=== PATIENT | female | born 1995 | race Caucasian/White ===

== ENCOUNTER 2017-10-22 14:32 | Inpatient (IN) | payer OTHER ==
--- NOTE | 2017-10-22 14:57 | PDOC ---
Rapid Medical Evaluation Time Seen by Provider: 10/22/17 14:46 Medical Evaluation: Allergies Allergy/AdvReac Type Severity Reaction Status Date / Time No Known Allergies Allergy Verified 10/22/17 14:46 10/22/17 14:46 I have performed a brief in-person evaluation of this patient. The patient presents with a chief complaint of: right mandibular swelling s/p tooth extraction Pertinent physical exam findings: HEENT: fluctuant area to buc[place] side of tooth #32 I have ordered the following: upt, ct maxilofacial The patient will proceed to the ED for further evaluation. Discharge Disposition - Diagnosis Right facial swelling - Referrals Referrals: Norberto Nicholson MD [Primary Care Provider] - - Patient Instructions - Post Discharge Activity
[2017-10-22 17:00] LABS: BASO % 0.4 % (0-2.0); EOS % 0.3 % (0-4.5); LYMPH # 1.9 (8-40); MCH 28.5 pg (25.7-33.7); MCHC 32.9 g/dl (32.0-36.0); MEAN CELL VOLUME 86.7 fl (80-96); MEAN PLT VOLUME 8.7 fl (7.5-11.1); MONO # 0.6 # (3.8-10.2); NEUT # 6.9 # (42.8-82.8); NEUT % 72.6 % (42.8-82.8); PLATELET COUNT 330 K/MM3 (134-434); RDW 14.1 % (11.6-15.6); WHITE BLOOD COUNT 9.6 K/mm3 (4.0-10.0)
[2017-10-22 17:32] LABS: ALBUMIN 4.2 g/dl (3.4-5.0); ANION GAP 6 (8-16); BILIRUBIN,TOTAL 0.7 mg/dL (0.2-1.0); CALCIUM 9.1 mg/dL (8.5-10.1); CO2 28 mmol/L (21-32); CREATININE 0.5 mg/dL (0.55-1.02); GLUCOSE,RANDOM 77 mg/dL (74-106); SGOT/AST 10 U/L (15-37); SGPT/ALT 16 U/L (12-78)
[2017-10-22 17:34] LABS: ALK PHOS 80 U/L (45-117); TOT PROT 8.5 g/dl (6.4-8.2)
[2017-10-22] MEDS ORDERED: AMPICILLIN NA/SULBACTAM NA 3 GM in SODIUM CHLORIDE 100 ML IVPB ONE (18:55)
[2017-10-22] MEDS ORDERED: KETOROLAC TROMETHAMINE 30 MG/1 ML VIAL IVPUSH ONE (19:10)
--- NOTE | 2017-10-22 19:20 | PDOC ---
History of Present Illness - General Chief Complaint: Pain, Acute Stated Complaint: ORAL SWELLING Time Seen by Provider: 10/22/17 14:46 - History of Present Illness Initial Comments: 10/22/17 19:19 22 F with no PMH presents to ER with R face swelling and pain. Pt had tooth extraction on Wednesday. SHe was DC'ed home with penicillin, which she has been taking. However, pt reports gradual progression of swelling and pain in her R cheek despite compliance with antibiotics. Endorses subjective fevers. Denies any drainage from her extraction site. Pt was seen by dentist today, who referred her to ER for further management. Past History - Past Medical History Allergies/Adverse Reactions: Allergies Allergy/AdvReac Type Severity Reaction Status Date / Time No Known Allergies Allergy Verified 10/22/17 14:46 Home Medications: Ambulatory Orders NK [No Known Home Medication] 10/24/15 COPD: No - Suicide/Smoking/Psychosocial Hx Smoking History: Never smoked Have you smoked in the past 12 months: No Information on smoking cessation initiated: No Hx Alcohol Use: No Drug/Substance Use Hx: No Substance Use Type: None Review of Systems - Review of Systems Comments:: 10/22/17 19:21 "GENERAL/CONSTITUTIONAL: No fever or chills. No weakness. HEAD, EYES, EARS, NOSE AND THROAT: R cheek swelling and pain CARDIOVASCULAR: No chest pain or shortness of breath. RESPIRATORY: No cough, wheezing, or hemoptysis. GASTROINTESTINAL: No nausea, vomiting, diarrhea or constipation. GENITOURINARY: No dysuria, frequency, or change in urination. MUSCULOSKELETAL: No joint or muscle swelling or pain. No neck or back pain. SKIN: No rash NEUROLOGIC: No headache, vertigo, loss of consciousness, or change in strength/ sensation. ENDOCRINE: No increased thirst. No abnormal weight change. HEMATOLOGIC/LYMPHATIC: No anemia, easy bleeding, or history of blood clots. ALLERGIC/IMMUNOLOGIC: No hives or skin allergy. " *Physical Exam - Vital Signs Last Vital Signs Temp Pulse Resp BP Pulse Ox 98.4 F 83 20 125/65 100 10/22/17 14:53 10/22/17 14:53 10/22/17 14:53 10/22/17 14:53 10/22/17 14:53 - Physical Exam Comments: 10/22/17 19:21 "GENERAL: Awake, alert, and fully oriented, in no acute distress HEAD: No signs of trauma EYES: PERRLA, EOMI, sclera anicteric, conjunctiva clear ENT: Auricles normal inspection, hearing grossly normal, nares patent, oropharynx clear without exudates. Moist mucosa + swelling and tenderness to R cheek without significant erythema, #32 tooth socket with dry blood, no purulent drainage NECK: Nontender, no stepoffs, Normal ROM, supple, no lymphadenopathy, JVD, or masses LUNGS: Breath sounds equal, clear to auscultation bilaterally. No wheezes, and no crackles HEART: Regular rate and rhythm, normal S1 and S2, no murmurs, rubs or gallops ABDOMEN: Soft, nontender, normoactive bowel sounds. No guarding, no rebound. No masses EXTREMITIES: Normal range of motion, no edema. No clubbing or cyanosis. No cords, erythema, or tenderness NEUROLOGICAL: Cranial nerves II through XII intact. 5/5 strength and sensation in all extremities, Normal speech, normal gait SKIN: Warm, Dry, normal turgor, no rashes or lesions noted. " ED Treatment Course - LABORATORY CBC & Chemistry Diagram: 10/23/17 07:05 10/23/17 07:05 - ADDITIONAL ORDERS Additional order review: Laboratory Results 10/22/17 10/22/17 16:03 15:40 Sodium 136 Potassium 4.9 Chloride 102 Carbon Dioxide 28 Anion Gap 6 L BUN 8 Creatinine 0.5 L Creat Clearance w eGFR > 60 Random Glucose 77 Calcium 9.1 Total Bilirubin 0.7 AST 10 L ALT 16 Alkaline Phosphatase 80 Total Protein 8.5 H Albumin 4.2 Urine HCG, Qual Negative 10/22/17 16:03 RBC 4.29 MCV 86.7 MCHC 32.9 RDW 14.1 MPV 8.7 Neutrophils % 72.6 Lymphocytes % 20.3 Monocytes % 6.4 Eosinophils % 0.3 Basophils % 0.4 - RADIOLOGY Radiology Studies Ordered: Category Date Time Status FACIAL BONES CT WITH CONTRAST [CT] Stat CT Scan 10/22/17 17:45 Completed Medical Decision Making - Medical Decision Making 10/22/17 19:22 22 F with R facial swelling s/p tooth extraction on Wednesday. Concerning for abscess formation. - Labs - CT facial bones w/ IV contrast - IV unasyn 10/22/17 19:36 CT consistent with abscess formation. Pt given IV unasyn Will admit for IV abx and possible OMFS consultation Case discussed in detail with admitting physician including history, physical exam and ancillary studies. Admitting physician has assumed care for the patient and will follow all pending diagnostics and complete the evaluation and treatment. *DC/Admit/Observation/Transfer Diagnosis at time of Disposition: Right facial swelling, Dental abscess - Discharge Dispostion Admit: Yes - Referrals - Patient Instructions - Post Discharge Activity - Attestations Physician Attestion: 10/22/17 19:47 I, Dr. Basil Platt MD, attest that this document has been prepared under my direction and personally reviewed by me in its entirety. I further attest, that it accurately reflects all work, treatment, procedures and medical decision -making performed by me.
[2017-10-22] MEDS ORDERED: KETOROLAC TROMETHAMINE 15 MG/ML VIAL ONE (19:33)
--- NOTE | 2017-10-22 20:42 | PN ---
Teaching Attending Note Name of Resident: Lm Nunez ATTENDING PHYSICIAN STATEMENT I saw and evaluated the patient. I reviewed the resident's note and discussed the case with the resident. I agree with the resident's findings and plan as documented. SUBJECTIVE: 22 y/o female presented to the hospital for right facial swelling, patient was seen at the dentist who recommended to come to the ER. patient was complaining of subjective fever and pain. OBJECTIVE: swelling with tenderness of the right face s1 and s2 RRR abdomen soft non-tender goiter noted on the neck ASSESSMENT AND PLAN: IV sulbacatam/ampicillin obtain thyroid function [id number] evaluation for the abscess drainage
[2017-10-22] MEDS ORDERED: ACETAMINOPHEN 325 MG TABLET (FP) PO PRN (21:25)
[2017-10-22] MEDS ORDERED: ACETAMINOPHEN 1000 MG/100 ML VIAL (NON FORMULARY) IVPB PRN (21:26)
--- NOTE | 2017-10-22 23:58 | HP ---
CHIEF COMPLAINT: facial pain and mass PCP: HISTORY OF PRESENT ILLNESS: 22F w/ no significant PMH who presents with facial pain and mass. She states that she first noticed the facial pain and mass 5 days ago. She denies any preceding trauma or injury to her face, recent cavities, or dental infections. Over the past 5 days, the mass has grown in size, and the pain has increased. This has caused her to be unable to fully open her mouth. She denies any fevers , chills, rhinorrhea, nasal congestion, sore throat, dysphagia, SOB, cough, chest pain, abdominal pain, n/v/d/c, and dysuria. She denies any previous abscesses or any family history of abscesses. ER course was notable for: (1) physical exam (2) (3) Recent Travel: PAST MEDICAL HISTORY: None PAST SURGICAL HISTORY: None Social History: Smoking: denies Alcohol: denies Drugs: denies Family History: denies Allergies No Known Allergies Allergy (Verified 10/22/17 14:46) HOME MEDICATIONS: Home Medications Medication Instructions Recorded NK [No Known Home Medication] 10/24/15 REVIEW OF SYSTEMS CONSTITUTIONAL: Absent: fever, chills, diaphoresis, generalized weakness, malaise, loss of appetite, weight change HEENT: Absent: rhinorrhea, nasal congestion, throat pain, throat swelling, difficulty swallowing, ear pain, eye pain, visual changes present: facial pain and mass CARDIOVASCULAR: Absent: chest pain, syncope, palpitations, irregular heart rate, lightheadedness , peripheral edema RESPIRATORY: Absent: cough, shortness of breath, dyspnea with exertion, orthopnea, wheezing, stridor, hemoptysis GASTROINTESTINAL: Absent: abdominal pain, abdominal distension, nausea, vomiting, diarrhea, constipation, melena, hematochezia GENITOURINARY: Absent: dysuria, frequency, urgency, hesitancy, hematuria, flank pain, genital pain MUSCULOSKELETAL: Absent: myalgia, arthralgia, joint swelling, back pain, neck pain SKIN: Absent: rash, itching, pallor HEMATOLOGIC/IMMUNOLOGIC: Absent: easy bleeding, easy bruising, lymphadenopathy, frequent infections ENDOCRINE: Absent: unexplained weight gain, unexplained weight loss, heat intolerance, cold intolerance NEUROLOGIC: Absent: headache, focal weakness or paresthesias, dizziness, unsteady gait, seizure, mental status changes, bladder or bowel incontinence PSYCHIATRIC: Absent: anxiety, depression, suicidal or homicidal ideation, hallucinations. PHYSICAL EXAMINATION Vital Signs - 24 hr 10/22/17 10/22/17 14:53 21:07 Temperature 98.4 F 99.2 F Pulse Rate 83 Pulse Rate [ 86 Right Radial] Respiratory 20 18 Rate Blood Pressure 125/65 Blood Pressure 113/75 [Left Arm] O2 Sat by Pulse 100 100 Oximetry (%) GENERAL: Awake, alert, and fully oriented, in no acute distress. HEENT: 5cm x 3.5cm erythematous firm mass on right cheek, very tender to palpation, non-fluctuant. limited ROM in opening mouth. no obvious dental cavities or infections NECK: Normal range of motion, supple without lymphadenopathy, JVD, or masses. LUNGS: Breath sounds equal, clear to auscultation bilaterally. No wheezes, and no crackles. No accessory muscle use. HEART: Regular rate and rhythm, normal S1 and S2 without murmur, rub or gallop. ABDOMEN: Soft, nontender, not distended, normoactive bowel sounds, no guarding, no rebound, no masses. No hepatomegaly or splenomegaly. MUSCULOSKELETAL: Normal range of motion at all joints. No bony deformities or tenderness. No CVA tenderness. UPPER EXTREMITIES: 2+ pulses, warm, well-perfused. No cyanosis. No clubbing. No peripheral edema. LOWER EXTREMITIES: 2+ pulses, warm, well-perfused. No calf tenderness. No peripheral edema. NEUROLOGICAL: Cranial nerves II-XII intact. Normal speech. Normal gait. PSYCHIATRIC: Cooperative. Good eye contact. Appropriate mood and affect. SKIN: Warm, dry, normal turgor, no rashes or lesions noted, normal capillary refill. Laboratory Results - last 24 hr 10/22/17 10/22/17 10/22/17 15:40 16:03 16:03 WBC 9.6 RBC 4.29 Hgb 12.2 Hct 37.2 MCV 86.7 MCH 28.5 MCHC 32.9 RDW 14.1 Plt Count 330 MPV 8.7 Neutrophils % 72.6 Lymphocytes % 20.3 Monocytes % 6.4 Eosinophils % 0.3 Basophils % 0.4 Sodium 136 Potassium 4.9 Chloride 102 Carbon Dioxide 28 Anion Gap 6 L BUN 8 Creatinine 0.5 L Creat Clearance w eGFR > 60 Random Glucose 77 Calcium 9.1 Total Bilirubin 0.7 AST 10 L ALT 16 Alkaline Phosphatase 80 Total Protein 8.5 H Albumin 4.2 Urine HCG, Qual Negative CT facial bones: A 1.3 x 1.1 x 0.7 cm hypodense focus is seen along the lateral aspect of the right mandibular body adjacent to the third molar socket suggestive of abscess formation. This fluid collection appears to communicate with a smaller area of fluid accumulation overlying the third molar tooth socket. Soft tissue inflammatory changes are noted along the right face. There is a probable nonspecific 1.2 cm right thyroid lobe nodule. Correlate with nonemergent sonography. ASSESSMENT/PLAN: 22F w/ no significant PMH who presents with facial pain and mass for past 5 days. #facial mass -likely abscess -unasyn -motrin and APAP for pain or fever -OMFS consulted, Dr. Romero,f/u recs regarding I&D #FEN/ppx -no fluids -electrolytes wnl -NPO for now -no GI ppx -no DVT ppx, pt ambulatory and low risk #Dispo -admit to observation -Lm Nunez Visit type - Emergency Visit Emergency Visit: Yes ED Registration Date: 10/22/17 Care time: The patient presented to the Emergency Department on the above date and was hospitalized for further evaluation of their emergent condition. - New Patient This patient is new to me today: Yes Date on this admission: 10/23/17 - Critical Care Critical Care patient: No
[2017-10-23] MEDS: IBUPROFEN 800 MG/8 ML IJ IVPB PRN ×2 (01:02→10:52)
[2017-10-23 02:04] VITALS: BMI 26.8
[2017-10-23 07:38] LABS: BASO # 0.1 # (0.1-1); BASO % 0.5 % (0-2.0); EOS # 0.1 # (0-4.5); EOS % 0.9 % (0-4.5); LYMPH # 2.3 (8-40); MCH 28.1 pg (25.7-33.7); MCHC 32.8 g/dl (32.0-36.0); MEAN CELL VOLUME 85.5 fl (80-96); MEAN PLT VOLUME 7.8 fl (7.5-11.1); MONO # 0.8 # (3.8-10.2); NEUT # 6.4 # (42.8-82.8); NEUT % 66.2 % (42.8-82.8); PLATELET COUNT 316 K/MM3 (134-434); RDW 13.6 % (11.6-15.6); WHITE BLOOD COUNT 9.6 K/mm3 (4.0-10.0)
[2017-10-23 08:12] LABS: ALBUMIN 3.6 g/dl (3.4-5.0); ANION GAP 8 (8-16); BILIRUBIN,TOTAL 0.7 mg/dL (0.2-1.0); CALCIUM 9.3 mg/dL (8.5-10.1); CO2 29 mmol/L (21-32); CREATININE 0.5 mg/dL (0.55-1.02); GLUCOSE,RANDOM 79 mg/dL (74-106); SGOT/AST 11 U/L (15-37); SGPT/ALT 13 U/L (12-78); TOT PROT 7.5 g/dl (6.4-8.2)
[2017-10-23 08:13] LABS: ALK PHOS 71 U/L (45-117)
[2017-10-23 08:46] LABS: INR 1.27 (0.82-1.09); PROTHROMBIN TIME (PATIENT) 14.4 SEC (9.98-11.88)
[2017-10-23 08:49] LABS: ACTIVATED PTT 28.8 SECONDS (26.9-34.4)
--- NOTE | 2017-10-23 10:18 | PN ---
Progress Note (short form) - Note Progress Note: ID Consult dictated Dental abscess Obtain blood c/s Continue empiric Unasyn Dental evaluation
[2017-10-23] MEDS: AMPICILLIN NA/SULBACTAM NA 3 GM in SODIUM CHLORIDE 100 ML IVPB SCH ×3 (12:11→20:39)
[2017-10-23] MEDS ORDERED: PT OWN MED DRAWER 7, Y5N ONE ×2 (16:05→20:32)
--- NOTE | 2017-10-23 16:27 | PN ---
Physical Exam: SUBJECTIVE: Patient seen and examined Patient stated that on Wednesday ,she had her wisdom tooth pulled. Afterward patient developed an infection where the dentist asked her to the hospital for IV antibiotic. OBJECTIVE: Vital Signs Temperature 98 F 10/23/17 14:23 Pulse Rate 69 10/23/17 14:23 Respiratory Rate 18 10/23/17 14:23 Blood Pressure 105/41 10/23/17 14:23 O2 Sat by Pulse Oximetry (%) 98 10/23/17 09:00 GENERAL: The patient is awake, alert, and fully oriented, in no acute distress. HEAD: Normal with no signs of trauma. EYES: PERRL, extraocular movements intact, sclera anicteric, conjunctiva clear. ENT: Ears normal, patient is unable to open her mouth , swollen the right side of her mouth. NECK: Trachea midline, full range of motion, supple. LUNGS: Breath sounds equal, clear to auscultation bilaterally, no wheezes, no crackles, no accessory muscle use. HEART: Regular rate and rhythm, S1, S2 without murmur, rub or gallop. ABDOMEN: Soft, nontender, nondistended, normoactive bowel sounds, no guarding, no rebound, no hepatosplenomegaly, no masses appreciated. EXTREMITIES: 2+ pulses, warm, well-perfused, no edema. NEUROLOGICAL: Cranial nerves II through XII grossly intact. Normal speech. PSYCH: Normal mood, normal affect. SKIN: Warm, dry, normal turgor, no rashes or lesions noted CBCD WBC 9.6 K/mm3 (4.0-10.0) 10/23/17 07:05 RBC 4.04 M/mm3 (3.60-5.2) 10/23/17 07:05 Hgb 11.3 GM/dL (10.7-15.3) 10/23/17 07:05 Hct 34.5 % (32.4-45.2) 10/23/17 07:05 MCV 85.5 fl (80-96) 10/23/17 07:05 MCHC 32.8 g/dl (32.0-36.0) 10/23/17 07:05 RDW 13.6 % (11.6-15.6) 10/23/17 07:05 Plt Count 316 K/MM3 (134-434) 10/23/17 07:05 MPV 7.8 fl (7.5-11.1) D 10/23/17 07:05 CMP Sodium 138 mmol/L (136-145) 10/23/17 07:05 Potassium 4.5 mmol/L (3.5-5.1) 10/23/17 07:05 Chloride 101 mmol/L (98-107) 10/23/17 07:05 Carbon Dioxide 29 mmol/L (21-32) 10/23/17 07:05 Anion Gap 8 (8-16) 10/23/17 07:05 BUN 8 mg/dL (7-18) 10/23/17 07:05 Creatinine 0.5 mg/dL (0.55-1.02) L 10/23/17 07:05 Creat Clearance w eGFR > 60 (>60) 10/23/17 07:05 Calcium 9.3 mg/dL (8.5-10.1) 10/23/17 07:05 Total Bilirubin 0.7 mg/dL (0.2-1.0) 10/23/17 07:05 AST 11 U/L (15-37) L 10/23/17 07:05 ALT 13 U/L (12-78) 10/23/17 07:05 Alkaline Phosphatase 71 U/L (45-117) 10/23/17 07:05 Total Protein 7.5 g/dl (6.4-8.2) 10/23/17 07:05 Albumin 3.6 g/dl (3.4-5.0) 10/23/17 07:05 Active Medications Generic Name Dose Route Start Last Admin Trade Name Nancy PRN Reason Stop Dose Admin Acetaminophen 1,000 mg 10/22/17 21:26 10/23/17 16:21 Ofirmev Injection - IVPB 1,000 mg Q6H PRN Administration FEVER OR PAIN Ampicillin Sodium/Sulbactam 100 mls @ 200 mls/hr 10/23/17 10:30 10/23/17 16: 21 Sodium 3 gm/ Sodium Chloride IVPB 200 mls/hr Q6H-IV YANNA Administration Ibuprofen 600 mg 10/22/17 21:25 10/23/17 10:52 Caldolor Injection - IVPB 600 mg Q6H PRN Administration FEVER OR PAIN Home Medications Medication Instructions Recorded NK [No Known Home Medication] 10/24/15 CT facial bones: A 1.3 x 1.1 x 0.7 cm hypodense focus is seen along the lateral aspect of the right mandibular body adjacent to the third molar socket suggestive of abscess formation. This fluid collection appears to communicate with a smaller area of fluid accumulation overlying the third molar tooth socket. Soft tissue inflammatory changes are noted along the right face. There is a probable nonspecific 1.2 cm right thyroid lobe nodule. Correlate with nonemergent sonography. ASSESSMENT/PLAN: Patient is a 22F w/ no significant PMH who presents with facial pain and mass for past 5 days. #Acute dental abcess on IV Unasyn , ID consult appreciated , ON motrin IV and tylenol prn Patient is Inpatient now Visit type - Emergency Visit Emergency Visit: Yes ED Registration Date: 10/22/17 Care time: The patient presented to the Emergency Department on the above date and was hospitalized for further evaluation of their emergent condition. - New Patient This patient is new to me today: Yes Date on this admission: 10/23/17 - Critical Care Critical Care patient: No - Discharge Referral Referred to [facility] Med P.C.: No
[2017-10-23] MEDS ORDERED: IBUPROFEN 800 MG/8 ML IJ IVPB PRN (16:37)
[2017-10-23] MEDS: IBUPROFEN 800 MG/8 ML IJ IVPB SCH ×2 (18:00→22:21)
--- NOTE | 2017-10-23 19:34 | CONS ---
DATE OF CONSULTATION: 10/23/2017 INFECTIOUS DISEASE CONSULTATION HISTORY OF PRESENT ILLNESS: The patient is a 22-year-old previously healthy female who was evaluated for dental abscess. The patient had 2 molar teeth extracted on Friday October 20, 2017. According to the note she had the 3rd mandibular molar on each side extracted. She was given a course of oral penicillin which she reports taking. She developed worsening pain and swelling of the right mandibular area. She reports being seen by the dentist and referred by the hospital for admission. On admission her CAT scan shows extraction of mandibular 3rd molar teeth bilaterally, soft tissue edema along the lateral border of the right mandibular body. There is an area of low attenuation focus abutting the lateral border of the right mandibular body at the level of the 3rd molar socket. Fluid collection appears to communicate with a small amount of fluid overlying the 3rd molar socket. No definite CT evidence of bone erosion. She denies any fever or chills, no difficulty swallowing or any respiratory compromise. PAST MEDICAL HISTORY: Negative. ALLERGIES: No known allergies. LABORATORY DATA: White count is 9.6, hematocrit 34.5, platelet count 316. BUN 8, creatinine 0.5. Liver enzymes normal. PHYSICAL EXAMINATION: General: She is awake and alert. She is in no acute distress. Her breathing is nonlabored. Vital signs: Temperature 98.5, blood pressure 116/70, pulse 68 regular, respirations 18 per minute. HEENT: Sclerae anicteric. There is soft tissue swelling right mandibular area, tender to touch. There is no erythema. She is able to open her mouth partially. There appears to be some swelling in the lateral aspect of the gingiva adjacent to the molar teeth. No purulent drainage is noted. Neck: Supple. Positive submandibular adenopathy. Heart: S1, S2. Lungs: Clear, no stridor or wheezing. Abdomen: Soft, nontender. Extremities: Negative for edema. IMPRESSION: Dental abscess. PLAN: Obtain blood cultures. Continue empiric Unasyn 3 g IV piggyback every 6 hours, dental evaluation. Thank you for the kind referral. FOZIA SINGH M.D. [id number]
[2017-10-24] MEDS ORDERED: PT OWN MED DRAWER 7, Y5N ONE ×4 (02:05→15:05)
[2017-10-24] MEDS: AMPICILLIN NA/SULBACTAM NA 3 GM in SODIUM CHLORIDE 100 ML IVPB SCH ×4 (02:32→20:20)
[2017-10-24] MEDS: IBUPROFEN 800 MG/8 ML IJ IVPB SCH ×3 (05:37→20:51)
[2017-10-24 06:33] LABS: BASO % 0.5 % (0-2.0); EOS # 0.1 # (0-4.5); EOS % 1.5 % (0-4.5); LYMPH # 1.9 (8-40); MCH 28.5 pg (25.7-33.7); MCHC 33.2 g/dl (32.0-36.0); MEAN CELL VOLUME 85.7 fl (80-96); MEAN PLT VOLUME 8.1 fl (7.5-11.1); MONO # 0.5 # (3.8-10.2); NEUT # 4.3 # (42.8-82.8); NEUT % 62.8 % (42.8-82.8); PLATELET COUNT 323 K/MM3 (134-434); RDW 13.5 % (11.6-15.6); WHITE BLOOD COUNT 6.8 K/mm3 (4.0-10.0)
[2017-10-24 06:54] LABS: ALBUMIN 3.3 g/dl (3.4-5.0); ANION GAP 6 (8-16); CALCIUM 8.4 mg/dL (8.5-10.1); CO2 29 mmol/L (21-32); GLUCOSE,RANDOM 76 mg/dL (74-106); SGOT/AST 31 U/L (15-37); SGPT/ALT 26 U/L (12-78)
[2017-10-24 06:57] LABS: ALK PHOS 67 U/L (45-117); BILIRUBIN,TOTAL 0.6 mg/dL (0.2-1.0); CREATININE 0.5 mg/dL (0.55-1.02)
--- NOTE | 2017-10-24 15:34 | PN ---
Progress Note (short form) - Note Progress Note: Patient is slightly better, swelling continues. No fever or chills, no shortness of breath, unable to open her mouth as much. Vital Signs Temperature 98 F 10/24/17 15:27 Pulse Rate 75 10/24/17 15:27 Respiratory Rate 20 10/24/17 15:27 Blood Pressure 110/58 10/24/17 15:27 O2 Sat by Pulse Oximetry (%) 98 10/24/17 09:00 GENERAL: The patient is awake, alert, and fully oriented, in no acute distress. HEAD: Normal with no signs of trauma. EYES: PERRL, extraocular movements intact, sclera anicteric, conjunctiva clear. ENT: Ears normal, patient is unable to open her mouth , swollen the right side of her mouth. NECK: Trachea midline, full range of motion, supple. LUNGS: Breath sounds equal, clear to auscultation bilaterally, no wheezes, no crackles, no accessory muscle use. HEART: Regular rate and rhythm, S1, S2 without murmur, rub or gallop. ABDOMEN: Soft, nontender, nondistended, normoactive bowel sounds, no guarding, no rebound, no hepatosplenomegaly, no masses appreciated. EXTREMITIES: 2+ pulses, warm, well-perfused, no edema. NEUROLOGICAL: Cranial nerves II through XII grossly intact. Normal speech. PSYCH: Normal mood, normal affect. SKIN: Warm, dry, normal turgor, no rashes or lesions noted CBCD WBC 6.8 K/mm3 (4.0-10.0) 10/24/17 05:55 RBC 3.82 M/mm3 (3.60-5.2) 10/24/17 05:55 Hgb 10.9 GM/dL (10.7-15.3) 10/24/17 05:55 Hct 32.7 % (32.4-45.2) 10/24/17 05:55 MCV 85.7 fl (80-96) 10/24/17 05:55 MCHC 33.2 g/dl (32.0-36.0) 10/24/17 05:55 RDW 13.5 % (11.6-15.6) 10/24/17 05:55 Plt Count 323 K/MM3 (134-434) 10/24/17 05:55 MPV 8.1 fl (7.5-11.1) 10/24/17 05:55 CMP Sodium 139 mmol/L (136-145) 10/24/17 05:55 Potassium 4.6 mmol/L (3.5-5.1) 10/24/17 05:55 Chloride 104 mmol/L (98-107) 10/24/17 05:55 Carbon Dioxide 29 mmol/L (21-32) 10/24/17 05:55 Anion Gap 6 (8-16) L 10/24/17 05:55 BUN 8 mg/dL (7-18) 10/24/17 05:55 Creatinine 0.5 mg/dL (0.55-1.02) L 10/24/17 05:55 Creat Clearance w eGFR > 60 (>60) 10/24/17 05:55 Random Glucose 76 mg/dL (74-106) 10/24/17 05:55 Calcium 8.4 mg/dL (8.5-10.1) L 10/24/17 05:55 Total Bilirubin 0.6 mg/dL (0.2-1.0) 10/24/17 05:55 AST 31 U/L (15-37) D 10/24/17 05:55 ALT 26 U/L (12-78) D 10/24/17 05:55 Alkaline Phosphatase 67 U/L (45-117) 10/24/17 05:55 Total Protein 7.0 g/dl (6.4-8.2) 10/24/17 05:55 Albumin 3.3 g/dl (3.4-5.0) L 10/24/17 05:55 Current Medications Generic Name Dose Route Start Last Admin Trade Name Freq PRN Reason Stop Dose Admin Ampicillin Sodium/Sulbactam 100 mls @ 200 mls/hr 10/23/17 10:30 10/24/17 15: 07 Sodium 3 gm/ Sodium Chloride IVPB 200 mls/hr Q6H-IV YANNA Administration Ibuprofen 400 mg 10/23/17 16:45 10/24/17 10:55 Caldolor Injection - IVPB 10/24/17 16:44 400 mg Q6H YANNA Administration Home Medications Medication Instructions Recorded NK [No Known Home Medication] 10/24/15 CT facial bones: A 1.3 x 1.1 x 0.7 cm hypodense focus is seen along the lateral aspect of the right mandibular body adjacent to the third molar socket suggestive of abscess formation. This fluid collection appears to communicate with a smaller area of fluid accumulation overlying the third molar tooth socket. Soft tissue inflammatory changes are noted along the right face. There is a probable nonspecific 1.2 cm right thyroid lobe nodule. Correlate with nonemergent sonography. ASSESSMENT/PLAN: Patient is a 22F w/ no significant PMHx who presents with dental abcess post extraction of her molar x 5 days ago. #Acute dental abcess post extraction of her molar , continue IV Unasyn , ID consult appreciated , On motrin IV placed the patient inpatient now Visit type - Emergency Visit Emergency Visit: Yes ED Registration Date: 10/23/17 Care time: The patient presented to the Emergency Department on the above date and was hospitalized for further evaluation of their emergent condition. - New Patient This patient is new to me today: No - Critical Care Critical Care patient: No
[2017-10-25] MEDS: AMPICILLIN NA/SULBACTAM NA 3 GM in SODIUM CHLORIDE 100 ML IVPB SCH ×4 (02:08→21:02)
[2017-10-25] MEDS: IBUPROFEN 800 MG/8 ML IJ IVPB SCH ×2 (02:31→09:45)
[2017-10-25 08:26] LABS: BASO % 0.6 % (0-2.0); EOS # 0.1 # (0-4.5); LYMPH # 2.3 (8-40); MCH 27.9 pg (25.7-33.7); MCHC 32.3 g/dl (32.0-36.0); MEAN CELL VOLUME 86.2 fl (80-96); MEAN PLT VOLUME 8.1 fl (7.5-11.1); MONO # 0.4 # (3.8-10.2); NEUT # 3.2 # (42.8-82.8); NEUT % 51.9 % (42.8-82.8); PLATELET COUNT 310 K/MM3 (134-434); RDW 13.7 % (11.6-15.6); WHITE BLOOD COUNT 6.1 K/mm3 (4.0-10.0)
[2017-10-25] MEDS ORDERED: PT OWN MED DRAWER 7, Y5N ONE ×2 (08:35→14:52)
[2017-10-25 08:49] LABS: ALBUMIN 3.3 g/dl (3.4-5.0); ANION GAP 8 (8-16); CALCIUM 8.3 mg/dL (8.5-10.1); CO2 27 mmol/L (21-32); CREATININE 0.5 mg/dL (0.55-1.02); GLUCOSE,RANDOM 79 mg/dL (74-106); SGOT/AST 16 U/L (15-37); SGPT/ALT 21 U/L (12-78)
[2017-10-25 08:51] LABS: ALK PHOS 65 U/L (45-117); BILIRUBIN,TOTAL 0.5 mg/dL (0.2-1.0); TOT PROT 6.9 g/dl (6.4-8.2)
[2017-10-25] MEDS ORDERED: IBUPROFEN 800 MG/8 ML IJ IVPB PRN (09:10)
--- NOTE | 2017-10-25 13:27 | PN ---
Progress Note (short form) - Note Progress Note: feels improved less swelling of the face less pain no fevers Vital Signs Period Temp Pulse Resp BP Sys/Campbell Pulse Ox Last 24 Hr 97.8 F-99.0 F 68-75 20-20 100-118/56-63 98-98 minimal swelling right jaw, opens mouth partially cor-rrr lungs clear abd soft,nt ext no edema CBC, BMP 10/25/17 06:30 10/25/17 06:30 Microbiology 10/23/17 11:37 Blood - Peripheral Venous Blood Culture - Preliminary NO GROWTH OBTAINED AFTER 48 HOURS, INCUBATION TO CONTINUE FOR 3 DAYS. 10/23/17 11:37 Blood - Peripheral Venous Blood Culture - Preliminary NO GROWTH OBTAINED AFTER 48 HOURS, INCUBATION TO CONTINUE FOR 3 DAYS. a/p facial swelling improved dental abscess continue unasyn for dental evaluation
--- NOTE | 2017-10-25 15:11 | PN ---
Physical Exam: SUBJECTIVE: Patient seen and examined OBJECTIVE: Vital Signs Period Temp Pulse Resp BP Sys/Campbell Pulse Ox Last 24 Hr 97.8 F-99.0 F 68-75 20-20 100-118/56-63 98-98 GENERAL: Awake, alert, and fully oriented, in no acute distress. HEENT: firm mass on right cheek is less erythematous and decreased in size, non- tender to palpation, non-fluctuant. still limited ROM in opening mouth. no obvious dental cavities or infections NECK: Normal range of motion, supple without lymphadenopathy, JVD, or masses. LUNGS: Breath sounds equal, clear to auscultation bilaterally. No wheezes, and no crackles. No accessory muscle use. HEART: Regular rate and rhythm, normal S1 and S2 without murmur, rub or gallop. ABDOMEN: Soft, nontender, not distended, normoactive bowel sounds, no guarding, no rebound, no masses. No hepatomegaly or splenomegaly. MUSCULOSKELETAL: Normal range of motion at all joints. No bony deformities or tenderness. No CVA tenderness. UPPER EXTREMITIES: 2+ pulses, warm, well-perfused. No cyanosis. No clubbing. No peripheral edema. LOWER EXTREMITIES: 2+ pulses, warm, well-perfused. No calf tenderness. No peripheral edema. NEUROLOGICAL: Cranial nerves II-XII intact. Normal speech. Normal gait. Laboratory Results - last 24 hr 10/25/17 10/25/17 06:30 06:30 WBC 6.1 RBC 3.83 Hgb 10.7 Hct 33.1 MCV 86.2 MCH 27.9 MCHC 32.3 RDW 13.7 Plt Count 310 MPV 8.1 Neutrophils % 51.9 Lymphocytes % 38.5 D Monocytes % 7.0 Eosinophils % 2.0 Basophils % 0.6 Sodium 138 Potassium 4.1 Chloride 103 Carbon Dioxide 27 Anion Gap 8 BUN 10 D Creatinine 0.5 L Creat Clearance w eGFR > 60 Random Glucose 79 Calcium 8.3 L Total Bilirubin 0.5 AST 16 D ALT 21 Alkaline Phosphatase 65 Total Protein 6.9 Albumin 3.3 L Active Medications Generic Name Dose Route Start Last Admin Trade Name Freq PRN Reason Stop Dose Admin Ampicillin Sodium/Sulbactam 100 mls @ 200 mls/hr 10/23/17 10:30 10/25/17 14: 56 Sodium 3 gm/ Sodium Chloride IVPB 200 mls/hr Q6H-IV YANNA Administration Ibuprofen 400 mg 10/25/17 09:10 10/25/17 09:32 Caldolor Injection - IVPB 400 mg Q6H-IV PRN Administration FEVER OR PAIN ASSESSMENT/PLAN: 22F w/ no significant PMH who presents with facial pain and mass s/p wisdom tooth extraction for past 5 days. #dental abscess -continue unasyn (day 4 of abx) -motrin for pain or fever -OMFS consulted, Dr. Romero, f/u recs #normocytic anemia -Hgb 12.2 on admission --> 10.7 -f/u iron studies -continue to monitor #FEN/ppx -no fluids -electrolytes wnl -full liquid diet -no GI ppx -no DVT ppx, pt ambulatory and low risk -Lm Nunez MD PGY1 Visit type - Emergency Visit Emergency Visit: Yes ED Registration Date: 10/23/17 Care time: The patient presented to the Emergency Department on the above date and was hospitalized for further evaluation of their emergent condition. - New Patient This patient is new to me today: No - Critical Care Critical Care patient: No
--- NOTE | 2017-10-25 19:09 | PN ---
Teaching Attending Note Name of Resident: Lm Nunez ATTENDING PHYSICIAN STATEMENT I saw and evaluated the patient. I reviewed the resident's note and discussed the case with the resident. I agree with the resident's findings and plan as documented. SUBJECTIVE: PAtient continues to feel better . swelling is mildly reduced in size. No fever or chills. OBJECTIVE: Vital Signs Temperature 97.9 F 10/25/17 14:00 Pulse Rate 76 10/25/17 14:00 Respiratory Rate 20 10/25/17 14:00 Blood Pressure 130/70 10/25/17 14:00 O2 Sat by Pulse Oximetry (%) 98 10/25/17 09:00 CBCD WBC 6.1 K/mm3 (4.0-10.0) 10/25/17 06:30 RBC 3.83 M/mm3 (3.60-5.2) 10/25/17 06:30 Hgb 10.7 GM/dL (10.7-15.3) 10/25/17 06:30 Hct 33.1 % (32.4-45.2) 10/25/17 06:30 MCV 86.2 fl (80-96) 10/25/17 06:30 MCHC 32.3 g/dl (32.0-36.0) 10/25/17 06:30 RDW 13.7 % (11.6-15.6) 10/25/17 06:30 Plt Count 310 K/MM3 (134-434) 10/25/17 06:30 MPV 8.1 fl (7.5-11.1) 10/25/17 06:30 CMP Sodium 138 mmol/L (136-145) 10/25/17 06:30 Potassium 4.1 mmol/L (3.5-5.1) 10/25/17 06:30 Chloride 103 mmol/L (98-107) 10/25/17 06:30 Carbon Dioxide 27 mmol/L (21-32) 10/25/17 06:30 Anion Gap 8 (8-16) 10/25/17 06:30 BUN 10 mg/dL (7-18) D 10/25/17 06:30 Creatinine 0.5 mg/dL (0.55-1.02) L 10/25/17 06:30 Creat Clearance w eGFR > 60 (>60) 10/25/17 06:30 Random Glucose 79 mg/dL (74-106) 10/25/17 06:30 Calcium 8.3 mg/dL (8.5-10.1) L 10/25/17 06:30 Total Bilirubin 0.5 mg/dL (0.2-1.0) 10/25/17 06:30 AST 16 U/L (15-37) D 10/25/17 06:30 ALT 21 U/L (12-78) 10/25/17 06:30 Alkaline Phosphatase 65 U/L (45-117) 10/25/17 06:30 Total Protein 6.9 g/dl (6.4-8.2) 10/25/17 06:30 Albumin 3.3 g/dl (3.4-5.0) L 10/25/17 06:30 Current Medications Generic Name Dose Route Start Last Admin Trade Name Freq PRN Reason Stop Dose Admin Ampicillin Sodium/Sulbactam 100 mls @ 200 mls/hr 10/23/17 10:30 10/25/17 14: 56 Sodium 3 gm/ Sodium Chloride IVPB 200 mls/hr Q6H-IV YANNA Administration Ibuprofen 400 mg 10/25/17 09:10 10/25/17 09:32 Caldolor Injection - IVPB 400 mg Q6H-IV PRN Administration FEVER OR PAIN Home Medications Medication Instructions Recorded NK [No Known Home Medication] 10/24/15 CT facial bones: A 1.3 x 1.1 x 0.7 cm hypodense focus is seen along the lateral aspect of the right mandibular body adjacent to the third molar socket suggestive of abscess formation. This fluid collection appears to communicate with a smaller area of fluid accumulation overlying the third molar tooth socket. Soft tissue inflammatory changes are noted along the right face. There is a probable nonspecific 1.2 cm right thyroid lobe nodule. Correlate with nonemergent sonography. ASSESSMENT/PLAN: Patient is a 22F w/ no significant PMH who presents with facial pain and mass for past 5 days. #Acute dental abcess on IV Unasyn day#3 now, ID consult appreciated , On motrin IV continue for inflammation for now. Id on the case. Patient is Inpatient now DVT Px: SCDs, early ambulation
[2017-10-26] MEDS: AMPICILLIN NA/SULBACTAM NA 3 GM in SODIUM CHLORIDE 100 ML IVPB SCH ×4 (02:40→21:12)
[2017-10-26 07:45] LABS: MCH 27.7 pg (25.7-33.7); MCHC 32.2 g/dl (32.0-36.0); MEAN CELL VOLUME 85.8 fl (80-96); MEAN PLT VOLUME 7.8 fl (7.5-11.1); PLATELET COUNT 320 K/MM3 (134-434); RDW 13.6 % (11.6-15.6); WHITE BLOOD COUNT 7.4 K/mm3 (4.0-10.0)
[2017-10-26] MEDS ORDERED: PT OWN MED DRAWER 7, Y5N ONE ×2 (09:05→15:37)
--- NOTE | 2017-10-26 10:47 | PN ---
Physical Exam: SUBJECTIVE: Patient seen and examined. No acute events overnight. Pt denies fevers, chills, facial pain, and any other subjective complaints. OBJECTIVE: Vital Signs Period Temp Pulse Resp BP Sys/Campbell Pulse Ox Last 24 Hr 97.9 F-98.5 F 63-77 16-20 102-130/52-70 98-100 GENERAL: Awake, alert, and fully oriented, in no acute distress. HEENT: firm mass on right cheek is less erythematous and decreased in size, non- tender to palpation, non-fluctuant. still limited ROM in opening mouth. no obvious dental cavities or infections NECK: Normal range of motion, supple without lymphadenopathy, JVD, or masses. LUNGS: Breath sounds equal, clear to auscultation bilaterally. No wheezes, and no crackles. No accessory muscle use. HEART: Regular rate and rhythm, normal S1 and S2 without murmur, rub or gallop. ABDOMEN: Soft, nontender, not distended, normoactive bowel sounds, no guarding, no rebound, no masses. No hepatomegaly or splenomegaly. MUSCULOSKELETAL: no edema NEUROLOGICAL: Cranial nerves II-XII intact. Normal speech. Normal gait. Laboratory Results - last 24 hr 10/26/17 10/26/17 06:25 06:25 WBC 7.4 RBC 3.86 Hgb 10.7 Hct 33.1 MCV 85.8 MCH 27.7 MCHC 32.2 RDW 13.6 Plt Count 320 MPV 7.8 Ferritin 57.366 Active Medications Generic Name Dose Route Start Last Admin Trade Name Freq PRN Reason Stop Dose Admin Ampicillin Sodium/Sulbactam 100 mls @ 200 mls/hr 10/23/17 10:30 10/26/17 09: 08 Sodium 3 gm/ Sodium Chloride IVPB 200 mls/hr Q6H-IV YANNA Administration Ibuprofen 400 mg 10/25/17 09:10 10/25/17 09:32 Caldolor Injection - IVPB 400 mg Q6H-IV PRN Administration FEVER OR PAIN ASSESSMENT/PLAN: 22F w/ no significant PMH who presents with facial pain and mass s/p wisdom tooth extraction for past 5 days. #dental abscess -continue unasyn (day 4 of abx) -motrin for pain or fever -OMFS consulted, Dr. Romero, f/u recs #normocytic anemia -Hgb 12.2 on admission --> 10.7 -f/u iron studies -continue to monitor #FEN/ppx -no fluids -electrolytes wnl -full liquid diet -no GI ppx -no DVT ppx, pt ambulatory and low risk -Lm Nunez MD PGY1 Visit type - Emergency Visit Emergency Visit: Yes ED Registration Date: 10/23/17 Care time: The patient presented to the Emergency Department on the above date and was hospitalized for further evaluation of their emergent condition. - New Patient This patient is new to me today: No - Critical Care Critical Care patient: No
--- NOTE | 2017-10-26 14:07 | PN ---
Progress Note, Physician History of Present Illness: Decreased R facial pain and swelling Still with pain on mastication No c/o fever, chills Tolerating antibiotics - Current Medication List Current Medications: Active Medications Ampicillin Sodium/Sulbactam (Sodium 3 gm/ Sodium Chloride) 100 mls @ 200 mls/ hr IVPB Q6H-IV YANNA Last Admin: 10/26/17 09:08 Dose: 200 mls/hr Ibuprofen (Caldolor Injection -) 400 mg IVPB Q6H-IV PRN PRN Reason: FEVER OR PAIN Last Admin: 10/25/17 09:32 Dose: 400 mg - Objective Vital Signs: Vital Signs Temperature 98.5 F 10/26/17 09:00 Pulse Rate 77 10/26/17 09:00 Respiratory Rate 18 10/26/17 09:00 Blood Pressure 112/56 10/26/17 09:00 O2 Sat by Pulse Oximetry (%) 98 10/26/17 09:00 Constitutional: Yes: No Distress HENT: Yes: Other (decreased R mandibular swelling and tenderness No erythema) Cardiovascular: Yes: Regular Rate and Rhythm, S1, S2 Respiratory: Yes: CTA Bilaterally. No: Stridor, Wheezes Gastrointestinal: Yes: Normal Bowel Sounds, Soft, Tenderness Labs: CBC, BMP 10/26/17 06:25 10/25/17 06:30 INR, PTT INR 1.27 (0.82-1.09) H 10/23/17 07:05 Assessment/Plan Dental abscess improved Continue Unasyn Dental evaluation
--- NOTE | 2017-10-26 16:07 | PN ---
Physical Exam: SUBJECTIVE: Patient seen and examined. No acute events overnight. Pt states that her swelling is going down, and she denies any pain or any subjective complaints. OBJECTIVE: Vital Signs Period Temp Pulse Resp BP Sys/Campbell Pulse Ox Last 24 Hr 98.2 F-98.5 F 63-77 16-20 102-112/52-61 98-100 GENERAL: Awake, alert, and fully oriented, in no acute distress. HEENT: firm mass on right cheek is no longer erythematous, is decreased in size , non-tender to palpation, non-fluctuant. still limited ROM in opening mouth. no obvious dental cavities or infections NECK: Normal range of motion, supple without lymphadenopathy, JVD, or masses. LUNGS: Breath sounds equal, clear to auscultation bilaterally. No wheezes, and no crackles. No accessory muscle use. HEART: Regular rate and rhythm, normal S1 and S2 without murmur, rub or gallop. ABDOMEN: Soft, nontender, not distended, normoactive bowel sounds, no guarding, no rebound, no masses. No hepatomegaly or splenomegaly. MUSCULOSKELETAL: no edema NEUROLOGICAL: Cranial nerves II-XII intact. Normal speech. Normal gait. Laboratory Results - last 24 hr 10/26/17 10/26/17 06:25 06:25 WBC 7.4 RBC 3.86 Hgb 10.7 Hct 33.1 MCV 85.8 MCH 27.7 MCHC 32.2 RDW 13.6 Plt Count 320 MPV 7.8 Ferritin 57.366 Active Medications Generic Name Dose Route Start Last Admin Trade Name Freq PRN Reason Stop Dose Admin Ampicillin Sodium/Sulbactam 100 mls @ 200 mls/hr 10/23/17 10:30 10/26/17 15: 41 Sodium 3 gm/ Sodium Chloride IVPB 200 mls/hr Q6H-IV YANNA Administration Ibuprofen 400 mg 10/25/17 09:10 10/25/17 09:32 Caldolor Injection - IVPB 400 mg Q6H-IV PRN Administration FEVER OR PAIN ASSESSMENT/PLAN: 22F w/ no significant PMH who presents with facial pain and mass s/p wisdom tooth extraction for past 5 days. #dental abscess- resolving -continue unasyn (day 5 of abx) -motrin for pain or fever #normocytic anemia -Hgb 12.2 on admission --> 10.7 -f/u iron studies -continue to monitor #FEN/ppx -no fluids -electrolytes wnl -full liquid diet -no GI ppx -no DVT ppx, pt ambulatory and low risk -Lm Nunez MD PGY1 Visit type - Emergency Visit Emergency Visit: Yes ED Registration Date: 10/23/17 Care time: The patient presented to the Emergency Department on the above date and was hospitalized for further evaluation of their emergent condition. - New Patient This patient is new to me today: No - Critical Care Critical Care patient: No
--- NOTE | 2017-10-26 18:36 | PN ---
Teaching Attending Note Name of Resident: Lm Nunez ATTENDING PHYSICIAN STATEMENT I saw and evaluated the patient. I reviewed the resident's note and discussed the case with the resident. I agree with the resident's findings and plan as documented. SUBJECTIVE: Is alot better today, swelling is down and able to open her mouth better than yesterday OBJECTIVE: Vital Signs Temperature 98.9 F 10/26/17 14:42 Pulse Rate 69 10/26/17 14:42 Respiratory Rate 16 10/26/17 14:42 Blood Pressure 95/49 10/26/17 14:42 O2 Sat by Pulse Oximetry (%) 98 10/26/17 09:00 CBCD WBC 7.4 K/mm3 (4.0-10.0) 10/26/17 06:25 RBC 3.86 M/mm3 (3.60-5.2) 10/26/17 06:25 Hgb 10.7 GM/dL (10.7-15.3) 10/26/17 06:25 Hct 33.1 % (32.4-45.2) 10/26/17 06:25 MCV 85.8 fl (80-96) 10/26/17 06:25 MCHC 32.2 g/dl (32.0-36.0) 10/26/17 06:25 RDW 13.6 % (11.6-15.6) 10/26/17 06:25 Plt Count 320 K/MM3 (134-434) 10/26/17 06:25 MPV 7.8 fl (7.5-11.1) 10/26/17 06:25 CMP Sodium 138 mmol/L (136-145) 10/25/17 06:30 Potassium 4.1 mmol/L (3.5-5.1) 10/25/17 06:30 Chloride 103 mmol/L (98-107) 10/25/17 06:30 Carbon Dioxide 27 mmol/L (21-32) 10/25/17 06:30 Anion Gap 8 (8-16) 10/25/17 06:30 BUN 10 mg/dL (7-18) D 10/25/17 06:30 Creatinine 0.5 mg/dL (0.55-1.02) L 10/25/17 06:30 Creat Clearance w eGFR > 60 (>60) 10/25/17 06:30 Random Glucose 79 mg/dL (74-106) 10/25/17 06:30 Calcium 8.3 mg/dL (8.5-10.1) L 10/25/17 06:30 Total Bilirubin 0.5 mg/dL (0.2-1.0) 10/25/17 06:30 AST 16 U/L (15-37) D 10/25/17 06:30 ALT 21 U/L (12-78) 10/25/17 06:30 Alkaline Phosphatase 65 U/L (45-117) 10/25/17 06:30 Total Protein 6.9 g/dl (6.4-8.2) 10/25/17 06:30 Albumin 3.3 g/dl (3.4-5.0) L 10/25/17 06:30 Current Medications Generic Name Dose Route Start Last Admin Trade Name Freq PRN Reason Stop Dose Admin Ampicillin Sodium/Sulbactam 100 mls @ 200 mls/hr 10/23/17 10:30 10/26/17 15: 41 Sodium 3 gm/ Sodium Chloride IVPB 200 mls/hr Q6H-IV YANNA Administration Ibuprofen 400 mg 10/25/17 09:10 10/25/17 09:32 Caldolor Injection - IVPB 400 mg Q6H-IV PRN Administration FEVER OR PAIN Home Medications Medication Instructions Recorded NK [No Known Home Medication] 10/24/15 PE: per resident's note mouth: right mouth still swollen better than yesterday, on palpation still has a size a small grape swelling. CT facial bones: A 1.3 x 1.1 x 0.7 cm hypodense focus is seen along the lateral aspect of the right mandibular body adjacent to the third molar socket suggestive of abscess formation. This fluid collection appears to communicate with a smaller area of fluid accumulation overlying the third molar tooth socket. Soft tissue inflammatory changes are noted along the right face. There is a probable nonspecific 1.2 cm right thyroid lobe nodule. Correlate with nonemergent sonography. ASSESSMENT/PLAN: Patient is a 22F w/ no significant PMH who presents with facial pain and mass for past 5 days. #Acute dental abcess on IV Unasyn day#4 now, ID consult appreciated , On motrin IV prn continue for inflammation for now. Id on the case. Patient is Inpatient now DVT Px: SCDs, early ambulation most likely will need 2 more days of IV antibiotic, access on a daily basis.
[2017-10-27] MEDS: AMPICILLIN NA/SULBACTAM NA 3 GM in SODIUM CHLORIDE 100 ML IVPB SCH ×3 (02:45→14:40)
[2017-10-27 06:07] LABS: SERUM IRON 75 ug/dL (27-159); TOTAL IRON BINDING CAPACITY 272 ug/dL (250-450); UIBC 197 ug/dL (131-425)
[2017-10-27 08:46] LABS: MCH 27.5 pg (25.7-33.7); MCHC 31.9 g/dl (32.0-36.0); MEAN CELL VOLUME 86.2 fl (80-96); MEAN PLT VOLUME 7.6 fl (7.5-11.1); PLATELET COUNT 318 K/MM3 (134-434); RDW 13.7 % (11.6-15.6); WHITE BLOOD COUNT 8.1 K/mm3 (4.0-10.0)
[2017-10-27 14:04] VITALS: BP 106/53; PULSE 66; TEMP 98.9
[2017-10-27] MEDS ORDERED: PT OWN MED DRAWER 7, Y5N ONE (14:35)
--- NOTE | 2017-10-27 15:16 | PN ---
Teaching Attending Note Name of Resident: Lm Nunez ATTENDING PHYSICIAN STATEMENT I saw and evaluated the patient. I reviewed the resident's note and discussed the case with the resident. I agree with the resident's findings and plan as documented. SUBJECTIVE: no fever or chills. has no pain in R sided face. OBJECTIVE: NAD CV : RRR Lungs : CTAB ext: je violeta HEENT: slight asymmetry in face ( swelling in R lower face, ) with small area of enduration over mid R mandible. no visible discharge from buccal mucosa or gum . ASSESSMENT AND PLAN: 22 y/o lady with no significant PMH who presented with R facial sweling after wisdom tooth extraction and was found to have an abscess s/o unasyn day 5 today, clinically improved with no leukocytosis and no fever . dc home on Augmentin x 5 more days . this was d/w ID by resident f/u with dentist and PCP
--- NOTE | 2017-10-28 06:24 | DS ---
Physical Exam: SUBJECTIVE: Patient seen and examined No acute events overnight. Pt states that her swelling is almost gone, and she denies any pain. She states that she still can't fully open her mouth. OBJECTIVE: Vital Signs Period Temp Pulse Resp BP Sys/Campbell Pulse Ox Last 24 Hr 98 F-98.9 F 66-68 18-20 106-109/53-54 96 PHYSICAL EXAM GENERAL: Awake, alert, and fully oriented, in no acute distress. HEENT: mass on right cheek is no longer erythematous, is decreased in size, non- tender to palpation, non-fluctuant. still limited ROM in opening mouth. no obvious dental cavities or infections NECK: Normal range of motion, supple without lymphadenopathy, JVD, or masses. LUNGS: Breath sounds equal, clear to auscultation bilaterally. No wheezes, and no crackles. No accessory muscle use. HEART: Regular rate and rhythm, normal S1 and S2 without murmur, rub or gallop. ABDOMEN: Soft, nontender, not distended, normoactive bowel sounds, no guarding, no rebound, no masses. No hepatomegaly or splenomegaly. MUSCULOSKELETAL: no edema NEUROLOGICAL: Cranial nerves II-XII intact. Normal speech. Normal gait. LABS Laboratory Results - last 24 hr 10/27/17 07:45 WBC 8.1 RBC 4.13 Hgb 11.4 Hct 35.6 MCV 86.2 MCH 27.5 MCHC 31.9 L RDW 13.7 Plt Count [address] facial bones: IMPRESSION: A 1.3 x 1.1 x 0.7 cm hypodense focus is seen along the lateral aspect of the right mandibular body adjacent to the third molar socket suggestive of abscess formation. This fluid collection appears to communicate with a smaller area of fluid accumulation overlying the third molar tooth socket. Soft tissue inflammatory changes are noted along the right face. There is a probable nonspecific 1.2 cm right thyroid lobe nodule. Correlate with nonemergent sonography. HOSPITAL COURSE: Date of Admission:10/23/17 Date of Discharge: 10/28/17 22F w/ no significant PMH who presented with facial pain and mass s/p wisdom tooth extraction for past 5 days, found to have dental abscess. Pt was given 5 days of IV unasyn with almost complete resolution of abscess, and her pain was controlled. Today, pt has normal vitals, no fever or leukocytosis, no subjective complaints other than inability to completely open mouth, and is ready for discharge. Pt instructed to continue taking augmentin for 5 more days. She was also informed of her right thyroid nodule and told to f/u with her PCP regarding getting an US. -Lm Nunez MD PGY1 Minutes to complete discharge: 35 Discharge Summary Reason For Visit: DENAL ABSCESS Condition: Stable - Instructions Diet, Activity, Other Instructions: You presented with a facial swelling and were found to have a dental abscess which developed after your wisdom tooth extraction. You were given IV antibiotics which has been resolving the abscess. On the CT scan of your face, a small thyroid nodule was found. Medications: 1. Take 1 tablet of augmentin 875mg in the morning and 1 tablet at night for 5 more days. Follow-ups: 1. Please follow up with your PCP, Dr. Nicholson, within one week. Please discuss your thyroid nodule finding with him. 2. Please follow up with your dentist within one week. If your abscess worsens, or you develop any concerning symptoms such as fever, shortness of breath, or chest pain, return to the ED. Referrals: Norberto Nicholson MD [Primary Care Provider] - Disposition: HOME - Home Medications Comprehensive Discharge Medication List: Ambulatory Orders Amoxicillin/Potassium Clav [Augmentin 875-125 Tablet] 1 each PO BID #10 tablet 10/27/17 This patient is new to me today: No Emergency Visit: Yes ED Registration Date: 10/23/17 Care time: The patient presented to the Emergency Department on the above date and was hospitalized for further evaluation of their emergent condition. Critical Care patient: No - Discharge Referral Referred to [facility] Med [facility].: No
== END 2017-10-27 16:16 | disposition home or self-care (01) | DRG 114 ==
LOC: JERFT 14:32 → JER 14:32 → JERBED 19:48 → UNDOADMOB 19:58 → JERBED 19:58 → J6S 22:01 → OBSVTOIN 10-23 16:35
PROVIDERS: ADMIT Internal Medicine; ATTEND Internal Medicine
DX: K04.7 Periapical abscess without sinus (principal); E04.1 Nontoxic single thyroid nodule; D64.9 Anemia, unspecified
CPT/HCPCS: 36415; 70487-TC; 80053; 82728; 83540; 83550; 84703; 85025; 85027; 85610; 85730; 87040; 99281-25; G0378

== ENCOUNTER → 2017-11-09 | Day surgery (SDC) | payer OTHER ==
--- NOTE | 2017-11-10 15:59 | PATH ---
Cytology Non-Gynecological Report Patient Name: GENESIS PAREDES [facility]. Rec. #: [id number] /Age/Gender: 1995 (Age: 22) / F Account: [id number] Location: RADIOLOGY Taken: 11/09/2017 Received: 11/09/2017 Reported: 11/10/2017 Physicians: Aaliyah Feldman M.D. Specimen(s) Received RIGHT THYROID FNA Clinical History Right thyroid nodule, 1.82 x 1.62 x 1.33 cm Final Diagnosis THYROID, RIGHT, FINE NEEDLE ASPIRATION: SATISFACTORY FOR EVALUATION. BETHESDA V: SUSPICIOUS FOR PAPILLARY THYROID CARCINOMA. ATYPICAL FOLLICULAR CELLS WITH ENLARGED NUCLEI, NUCLEAR GROOVES AND INTRANUCLEAR CLEARING, DISPERSED PAPILLARY AND SYNCITIAL FRAGMENTS IN A BACKGROUND OF SCATTERED LYMPHOCYTES AND LYMPHOID TANGLES. Comment: Findings discussed with Dr. Hope. Electronically Signed Elo El M.D. Gross Description Received are eight direct smears, four of which are air-dried and Diff-Quik stained, and four of which are alcohol fixed and Pap stained. Also received is 20 ml of bloody formalin from which one cellblock is prepared.
== END | disposition home or self-care (01) ==
LOC: JRADIR 08:44
PROVIDERS: ATTEND Internal Medicine Endocrinology, Diabetes & Metabolism
PROC: 0G9H3ZX Drainage of Right Thyroid Gland Lobe, Percutaneous Approach, Diagnostic (ICD-10-PCS; principal; 2017-11-09)
DX: E04.1 Nontoxic single thyroid nodule (principal)
CPT/HCPCS: 76942; 88173; 88305-TC

== ENCOUNTER 2017-12-17 08:48 | Inpatient (IN) | payer OTHER ==
[2017-12-16 14:34] VITALS: BMI 26.5
[2017-12-17 09:09] LABS: BASO % 0.8 % (0-2.0); EOS % 1.8 % (0-4.5); HEMATOCRIT 35.5 % (32.4-45.2); HEMOGLOBIN 11.4 GM/dL (10.7-15.3); LYMPH % 36.7 % (8-40); MCH 27.6 pg (25.7-33.7); MCHC 32.1 g/dl (32.0-36.0); MEAN CELL VOLUME 86.1 fl (80-96); MEAN PLT VOLUME 7.7 fl (7.5-11.1); MONO % 7.8 % (3.8-10.2); NEUT % 52.9 % (42.8-82.8); PLATELET COUNT 304 K/MM3 (134-434); RBC 4.13 M/mm3 (3.60-5.2); RDW 14.9 % (11.6-15.6); WHITE BLOOD COUNT 7.6 K/mm3 (4.0-10.0)
[2017-12-17] MEDS ORDERED: MIDAZOLAM HCL 2 MG/2 ML SINGLE DOSE VIAL ONE (09:47)
--- NOTE | 2017-12-17 09:50 | HP ---
History & Physical Update - Physical Physical: No Change - Assessment Assessment: No Change - Plan Plan: No Change (Patient with a thyroid nodule that is suspicious on FNA for carcinoma. Plan thyroid lobectomy , frozen section , possible total thyroidectomy and neck dissection.)
[2017-12-17] MEDS ORDERED: ONDANSETRON 4 MG/2 ML VIAL ONE ×2 (10:04→13:26)
[2017-12-17] MEDS ORDERED: DEXAMETHASONE SOD PHOSPHATE 4 MG/1 ML VIAL ONE ×2 (10:04→13:26)
[2017-12-17] MEDS ORDERED: PROPOFOL 20 ML ONE (10:05)
[2017-12-17] MEDS ORDERED: SUCCINYLCHOLINE CHLORIDE 200 MG/10 ML VIAL ONE (10:06)
[2017-12-17] MEDS ORDERED: LIDOCAINE HCL/PF 2% SDV 5ML VIAL ONE (10:06)
[2017-12-17] MEDS ORDERED: ONDANSETRON 4 MG/2 ML VIAL IVPUSH PRN (11:05)
--- NOTE | 2017-12-17 14:09 | OP ---
Operative Note - Note: Operative Date: 12/17/17 Pre-Operative Diagnosis: Thyroid nodule, suspicious for malignancy. Operation: Right thyroid lobectomy, frozen section , total thyroidectomy. Central compartment neck dissection and right modified neck dissection. Use of Nervana nerve monitor. Findings: Nodule in right lobe of thyroid , positive for papillary carcinoma of thyroid. 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 2) Left lobe of thyroid gland. 3) central compartment neck dissection. 4) Right jugular chain of lymph nodes Estimated Blood Loss (mls): 25 Operative Report Dictated: Yes
[2017-12-17] MEDS ORDERED: HYDROmorphone HCL CARPU-JECT 1 MG/1 ML DISP.SYRIN IM PRN (14:29)
[2017-12-17] MEDS ORDERED: HYDROmorphone HCL CARPU-JECT 4 MG/1 ML DISP.SYRIN ONE (16:38)
[2017-12-17] MEDS: LACTATED RINGERS SOLUTION 1,000 ML IV SCH (17:15)
[2017-12-17] MEDS: ACETAMINOPHEN 325 MG TABLET (FP) PO PRN (18:44)
[2017-12-17] MEDS: oxyCODONE HCL 5 MG TABLET PO PRN (18:44)
[2017-12-17] MEDS: HYDROmorphone HCL CARPU-JECT 4 MG/1 ML DISP.SYRIN IM PRN (22:24)
[2017-12-18] MEDS: LACTATED RINGERS SOLUTION 1,000 ML IV SCH ×2 (00:34→09:04)
[2017-12-18] MEDS: HYDROmorphone HCL CARPU-JECT 4 MG/1 ML DISP.SYRIN IM PRN ×4 (06:32→19:14)
[2017-12-18] MEDS: oxyCODONE HCL 5 MG TABLET PO PRN ×2 (08:41→23:44)
[2017-12-18] MEDS: ACETAMINOPHEN 325 MG TABLET (FP) PO PRN ×2 (08:42→23:45)
[2017-12-18] MEDS: CALCIUM 500MG/VIT-D 200 UNITS COMBO TABLET (FP) PO SCH (10:56)
--- NOTE | 2017-12-18 11:41 | CONSULT ---
Consult Consult Specialty:: Endocrinology Referred by:: Dr Grace Reason for Consultation:: Thyroid Ca - History of Present Illness Chief Complaint: Thyroid Ca History of Present Illness: This is a 22 y/o F with h/o thyroid nodule found on sonogram in 10/2017 to have rt nodule1.9x1.1x1.3 cm, heterogenous, hypervascular, unchanged from 9.03.17. Pt was referred for FNA which was reported on 11.09.17 as suspicious for papillary thyroid ca. Pt had total thyroidectomy with lymph node dissection yesteday. Pt's post op calcium was 8.0 and is currently on calcium and Vit d replacement. Pt c/o pain at surgical site. No fever or chills. No perioral paresthesia, no muscle spasm. - History Source History Provided By: Patient, Medical Record - Past Medical History ...LMP: 12/06/17 Endocrine: Yes: Other (Rt Thyroid nodule) - Alcohol/Substance Use Hx Alcohol Use: No - Smoking History Smoking history: Never smoked Have you smoked in the past 12 months: No Home Medications - Allergies Allergies/Adverse Reactions: Allergies Allergy/AdvReac Type Severity Reaction Status Date / Time No Known Allergies Allergy Verified 12/16/17 14:45 - Home Medications Home Medications: Ambulatory Orders NK [No Known Home Medication] 12/16/17 Family Disease History - Family Disease History Other Family History: No family h/o Thyroid Ca Review of Systems - Review of Systems Constitutional: reports: Malaise Eyes: reports: No Symptoms HENT: reports: No Symptoms Neck: reports: Other (Pain at surgical site) Cardiovascular: reports: No Symptoms Respiratory: reports: No Symptoms Gastrointestinal: reports: No Symptoms Genitourinary: reports: No Symptoms Musculoskeletal: reports: No Symptoms Endocrine: reports: No Symptoms Physical Exam Vital Signs: Vital Signs Temperature 98.3 F 12/18/17 09:00 Pulse Rate 80 12/18/17 09:00 Respiratory Rate 20 12/18/17 09:00 Blood Pressure 124/80 12/18/17 09:00 O2 Sat by Pulse Oximetry (%) 98 12/17/17 20:38 Constitutional: Yes: No Distress, Calm Eyes: Yes: Conjunctiva Clear, EOM Intact HENT: Yes: Atraumatic, Normocephalic Neck: Yes: Other (surgical site over front of neck, clean, no d/c) Respiratory: Yes: Regular, CTA Bilaterally Gastrointestinal: Yes: Normal Bowel Sounds, Soft Musculoskeletal: Yes: WNL Extremities: Yes: WNL Edema: No Neurological: Yes: Alert, Oriented Labs: CBC, BMP 12/17/17 08:53 Assessment/Plan AP: 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 Central compartment neck dissection and right modified neck dissection. Monitor calcium Continue calcium and vit d supplement Discussed s/S hypocalcemia and explained to report any symptoms Start LT4 75mcg QD Will f/u
--- NOTE | 2017-12-18 12:30 | OP ---
DATE OF OPERATION: 12/17/2017 PREOPERATIVE DIAGNOSIS: Nodule in the right lobe of the thyroid, fine needle aspiration cytology highly suspicious for papillary carcinoma of the thyroid Flushing grade 5. POSTOPERATIVE DIAGNOSIS: Papillary carcinoma of the thyroid. OPERATIVE PROCEDURE: 1. Right thyroid lobectomy with frozen section. 2. Left completion thyroidectomy and left lobectomy. 3. Central compartment neck dissection. 4. Removal of right jugular chain lymph nodes. SURGEON: Jamie Grace MD FISCAL ACCOUNTANT: Medical students. ANESTHESIA: General anesthesia with the use of the Nerveana nerve monitoring device. OPERATIVE DESCRIPTION: This 22-year-old woman was found to have a hard thyroid nodule in the right lobe of the thyroid medial to the isthmus, about 2.1 cm in diameter. She had a FNA which was highly suspicious for papillary carcinoma of the thyroid with nuclear features and was graded as Flushing 5. Patient was brought in for right thyroid lobectomy, frozen section, possible total thyroidectomy with modified neck dissection. Consent was obtained. The risks, benefits, and complications had been discussed with the patient. Patient was brought to the operating room. General anesthesia was administered. The Nerveana nerve monitoring device with the appropriate endotracheal tube was used during the procedure. The neck was positioned in extension, painted and draped. Timeout was called. A horizontal skin incision was made one fingerbreadth above the clavicle from one sternocleidomastoid muscle to another. This was deepened to incise the skin, subcutaneous tissue, and the subcutaneous fat. Superior and inferior skin flaps were then raised between the platysma and the deep cervical fascia, superiorly up to the hyoid bone, inferiorly anterior to and below the clavicle on either side. The sternocleidomastoid muscle was freed from the flap on either side. The strap muscles were then divided in the midline from the hyoid bone down to the suprasternal notch. The thyroid gland was identified, and the right lobe of the thyroid was then exposed. There were extensive adhesions of the strap muscles to the thyroid gland, the body, and the upper pole as well. Strap muscles were then gradually retracted laterally with retractor, and the gland was then mobilized medially and anteriorly. The upper pole of the thyroid gland was then mobilized, dividing the superior thyroid vessels as close to the gland as possible. The right superior parathyroid gland was identified and preserved with its blood supply intact. The inferior parathyroid gland was also identified and preserved with its blood supply intact from the inferior thyroid vessels. The middle thyroid vein was also divided between clips and a LigaSure. The right recurrent laryngeal nerve was identified and maintained intact all the way to its entrance to the cricothyroid muscle. This was monitored with the Nerveana nerve monitoring device with the appropriate response to stimulation. The gland was then mobilized medially across the pretracheal fascial plane. There was a larger nodule at the junction of the isthmus and the right lobe of the thyroid gland, essentially over the isthmus. This seemed to be also somewhat adherent to the trachea. This was freed from the trachea and mobilized towards the left. The pyramidal lobe was also removed along with the right lobe of the thyroid gland. The nodule seemed to extend to the left of the pyramidal lobe. Once the gland was mobilized beyond the nodule to the left lobe of the thyroid gland, a Shadi clamp was placed across the left lobe of the thyroid gland, and the right lobe, the isthmus, and the pyramidal lobe were divided and sent to Pathology for frozen section. The frozen section was diagnosed as papillary carcinoma of the thyroid gland. It was then decided to do a total thyroidectomy and remove the remaining portion of the left lobe of the thyroid gland. The superior thyroid vessels were divided as close to the gland as possible between hemoclips and the LigaSure. The middle thyroid vein was also divided as close to the gland as possible. The inferior thyroid vessels were also divided as close to the gland as possible after its blood supply to the inferior and superior parathyroid glands. The gland was mobilized medially. The left recurrent laryngeal nerve was identified and preserved throughout its course. The gland was then mobilized and completely removed and sent to Pathology. A central compartment neck dissection was then performed, removing all the lymphovascular structures from one recurrent laryngeal nerve to the other, maintaining the recurrent laryngeal nerve in continuity and preserving the parathyroid glands. There were enlarged nodes in the superior mediastinum in the paratracheal region. These were excised. All blood vessels were identified and there was no bleeding and these were divided using hemoclips and the LigaSure. The right carotid sheath was then exposed, dividing the deep fascia, and the jugular vein was also exposed from the clavicle to the mandible. There were some lymph nodes that appeared benign that were removed posterior to the right internal jugular vein. This was sent to Pathology separately as a frozen section. There were no grossly enlarged right lateral cervical lymph nodes. Hemostasis was satisfactory. A number 10 RADHA drain was left into the wound and brought out through a stab wound on the right side of the neck. This was anchored with 2-0 Prolene sutures. The wound was irrigated. Hemostasis was satisfactory. Strap muscles were approximated with interrupted 3-0 Vicryl sutures, platysma approximated with buried interrupted 3-0 Vicryl sutures, and skin approximated with continuous 4-0 Monocryl sutures in a running subcuticular fashion. Estimated blood loss was 25 mL. Sponge count and instrument count were correct. Dermabond was applied across the skin edges. Patient tolerated the procedure well, was extubated, and sent to the recovery room in satisfactory and stable condition. Aaliyah [id number]
--- NOTE | 2017-12-18 13:11 | PN ---
Progress Note (short form) - Note Progress Note: Post op day#1.S/P Total thyroidectomy with neck dissection under GA uneventful.Patient stable and c/o difficulty in breathing and is being evaluated for that.Will f/u.
--- NOTE | 2017-12-18 15:46 | PN ---
Progress Note, Physician - Current Medication List Current Medications: Active Medications Acetaminophen (Tylenol -) 325 mg PO Q6H PRN PRN Reason: PAIN LEVEL 1-5 Last Admin: 12/18/17 08:42 Dose: 325 mg Calcium Carbonate/Cholecalciferol (Os-Brendon 500+D -) 2 tab PO DAILY [facility] Last Admin: 12/18/17 10:56 Dose: 2 tab Fentanyl (Sublimaze Injection -) 50 mcg IVPUSH [id number] PRN PRN Reason: PAIN-PACU ORDER X 4 DOSES ONLY Last Admin: 12/17/17 14:35 Dose: 50 mcg Hydromorphone HCl (Dilaudid Injection -) 1 mg IM Q4H PRN PRN Reason: PAIN LEVEL 6-10 Last Admin: 12/18/17 15:09 Dose: 1 mg Lactated Ringer's (Lactated Ringers Solution) 1,000 mls @ 125 mls/hr IV ASDIR [facility] Last Admin: 12/18/17 09:04 Dose: 125 mls/hr Levothyroxine Sodium (Synthroid -) 75 mcg PO DAILY@0700 [facility] Ondansetron HCl (Zofran Injection) 4 mg IVPUSH Q6H PRN PRN Reason: NAUSEA AND/OR VOMITING Oxycodone HCl (Roxicodone -) 5 mg PO Q6H PRN PRN Reason: PAIN LEVEL 1-5 Last Admin: 12/18/17 08:41 Dose: 5 mg - Objective Vital Signs: Vital Signs Temperature 99.0 F 12/18/17 13:13 Pulse Rate 70 12/18/17 13:13 Respiratory Rate 16 12/18/17 13:13 Blood Pressure 108/53 12/18/17 13:13 O2 Sat by Pulse Oximetry (%) 98 12/18/17 09:00 Labs: CBC, BMP 12/17/17 08:53 Assessment/Plan Patient is awake, alert. Sittimg in the lounge, comfortable, no respiratory distress. RADHA drain 70 ml.serosanguinous. No swelling b, hematoma in the neck. Voice is hoarse. Both recurrent laryngeal nerves were monitored , mainatined intact with continuity , and functional. Serum calcium is 8 mgm . Continue to monitor serum calcium . watch for symptoms of hypocalcemia. Supplement calcium , and Vitamin d3. Keep Radha drain.
[2017-12-19] MEDS: LACTATED RINGERS SOLUTION 1,000 ML IV SCH ×2 (03:55→11:52)
[2017-12-19] MEDS: oxyCODONE HCL 5 MG TABLET PO PRN ×2 (05:46→18:17)
[2017-12-19] MEDS: ACETAMINOPHEN 325 MG TABLET (FP) PO PRN ×3 (05:47→18:17)
[2017-12-19] MEDS: LEVOTHYROXINE NA 75 MCG TABLET (FP) PO SCH (06:00)
--- NOTE | 2017-12-19 10:25 | PN ---
Progress Note, Physician - Current Medication List Current Medications: Active Medications Acetaminophen (Tylenol -) 325 mg PO Q6H PRN PRN Reason: PAIN LEVEL 1-5 Last Admin: 12/19/17 05:47 Dose: 325 mg Calcium Carbonate/Cholecalciferol (Os-Brendon 500+D -) 2 tab PO DAILY [facility] Last Admin: 12/18/17 10:56 Dose: 2 tab Fentanyl (Sublimaze Injection -) 50 mcg IVPUSH [id number] PRN PRN Reason: PAIN-PACU ORDER X 4 DOSES ONLY Last Admin: 12/17/17 14:35 Dose: 50 mcg Hydromorphone HCl (Dilaudid Injection -) 1 mg IM Q4H PRN PRN Reason: PAIN LEVEL 6-10 Last Admin: 12/18/17 19:14 Dose: 1 mg Lactated Ringer's (Lactated Ringers Solution) 1,000 mls @ 125 mls/hr IV ASDIR [facility] Last Admin: 12/19/17 03:55 Dose: 125 mls/hr Levothyroxine Sodium (Synthroid -) 75 mcg PO DAILY@0700 [facility] Last Admin: 12/19/17 06:00 Dose: 75 mcg Ondansetron HCl (Zofran Injection) 4 mg IVPUSH Q6H PRN PRN Reason: NAUSEA AND/OR VOMITING Oxycodone HCl (Roxicodone -) 5 mg PO Q6H PRN PRN Reason: PAIN LEVEL 1-5 Last Admin: 12/19/17 05:46 Dose: 5 mg - Objective Vital Signs: Vital Signs Temperature 98.7 F 12/19/17 09:29 Pulse Rate 81 12/19/17 09:29 Respiratory Rate 18 12/19/17 09:29 Blood Pressure 111/74 12/19/17 09:29 O2 Sat by Pulse Oximetry (%) 98 12/18/17 20:06 Labs: CBC, BMP 12/17/17 08:53 Assessment/Plan Surgery: post operative day # 2. Neck wound is clean , no swelling , hematoma. Drain in place , draining serous fluid , ? 20 ml. Drain is removed. Voice has improved and is normal. No respiratory difficulty. Serum calcium is 8.7. Will discharge home. Follow up in my office on . Instructions given to call my office or come to [facility] for any problems. Prescription given for percocet, calcium carbonate with Vitamin D3, and synthroid. Follow up with Dr. Hope as well.
[2017-12-19] MEDS: CALCIUM 500MG/VIT-D 200 UNITS COMBO TABLET (FP) PO SCH (10:55)
[2017-12-19] MEDS: HYDROmorphone HCL CARPU-JECT 4 MG/1 ML DISP.SYRIN IM PRN (11:04)
--- NOTE | 2017-12-19 14:41 | PN ---
Progress Note (short form) - Note Progress Note: In bed in NAD Vital Signs Period Temp Pulse Resp BP Sys/Campbell Pulse Ox Last 24 Hr 97.4 F-99.0 F 74-90 16-18 111-116/54-74 98-98 PE: AOx3 Neck: surgical wound clean, no DC HEENT: PERRL, EOMI Lungs: CTA CVS: s1S2 Abd: Benign EXT: No edema Neuro: No focal deficit CMP Calcium 8.1 mg/dL (8.5-10.1) L 12/19/17 11:31 Current Medications Generic Name Dose Route Start Last Admin Trade Name Freq PRN Reason Stop Dose Admin Acetaminophen 325 mg 12/17/17 14:30 12/19/17 12:20 Tylenol - PO 325 mg Q6H PRN Administration PAIN LEVEL 1-5 Calcium Carbonate/Cholecalciferol 2 tab 12/18/17 10:00 12/19/17 10:55 Os-Brendon 500+D - PO 2 tab DAILY [facility] Administration Fentanyl 50 mcg 12/17/17 11:05 12/17/17 14:35 Sublimaze Injection - IVPUSH 50 mcg [id number] PRN Administration PAIN-PACU ORDER X 4 DOSES ONLY Hydromorphone HCl 1 mg 12/17/17 21:31 12/19/17 11:04 Dilaudid Injection - IM 1 mg Q4H PRN Administration PAIN LEVEL 6-10 Lactated Ringer's 1,000 mls @ 125 mls/hr 12/17/17 11:15 12/19/17 11:52 Lactated Ringers Solution IV Not Given ASDIR [facility] Levothyroxine Sodium 75 mcg 12/19/17 07:00 12/19/17 06:00 Synthroid - PO 75 mcg DAILY@0700 [facility] Administration Ondansetron HCl 4 mg 12/17/17 11:05 Zofran Injection IVPUSH Q6H PRN NAUSEA AND/OR VOMITING Oxycodone HCl 5 mg 12/17/17 14:58 12/19/17 05:46 Roxicodone - PO 5 mg Q6H PRN Administration PAIN LEVEL 1-5 AP: 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 Central compartment neck dissection and right modified neck dissection. Monitor calcium Continue calcium and vit d supplement Discussed s/S hypocalcemia and explained to report any symptoms LT4 75mcg QD F/U in office in 2 weeks
[2017-12-20] MEDS: ACETAMINOPHEN 325 MG TABLET (FP) PO PRN ×2 (06:09→21:46)
[2017-12-20] MEDS: oxyCODONE HCL 5 MG TABLET PO PRN (06:10)
[2017-12-20] MEDS: LEVOTHYROXINE NA 75 MCG TABLET (FP) PO SCH (06:10)
[2017-12-20] MEDS: CALCIUM 500MG/VIT-D 200 UNITS COMBO TABLET (FP) PO SCH ×2 (09:10→21:20)
[2017-12-20 11:01] LABS: BASO % 0.9 % (0-2.0); EOS % 3.7 % (0-4.5); HEMATOCRIT 33.3 % (32.4-45.2); HEMOGLOBIN 10.9 GM/dL (10.7-15.3); LYMPH % 28.3 % (8-40); MCH 27.7 pg (25.7-33.7); MCHC 32.6 g/dl (32.0-36.0); MEAN CELL VOLUME 84.8 fl (80-96); MEAN PLT VOLUME 7.6 fl (7.5-11.1); MONO % 10.2 % (3.8-10.2); NEUT % 56.9 % (42.8-82.8); PLATELET COUNT 265 K/MM3 (134-434); RBC 3.93 M/mm3 (3.60-5.2); WHITE BLOOD COUNT 9.3 K/mm3 (4.0-10.0)
[2017-12-20 11:49] LABS: ALBUMIN 3.4 g/dl (3.4-5.0); ANION GAP 6 (8-16); BILIRUBIN,TOTAL 0.5 mg/dL (0.2-1.0); BLOOD UREA NITROGEN 8 mg/dL (7-18); CALCIUM 7.7 mg/dL (8.5-10.1); CHLORIDE 100 mmol/L (98-107); CO2 32 mmol/L (21-32); CREATININE 0.6 mg/dL (0.55-1.02); GLUCOSE,RANDOM 98 mg/dL (74-106); MAGNESIUM 1.6 mg/dL (1.8-2.4); POTASSIUM 3.3 mmol/L (3.5-5.1); SGOT/AST 12 U/L (15-37); SGPT/ALT 12 U/L (12-78); SODIUM 138 mmol/L (136-145); TOT PROT 7.1 g/dl (6.4-8.2)
--- NOTE | 2017-12-20 11:51 | PN ---
Progress Note (short form) - Note Progress Note: In bed in NAD Had episode of ?dizziness, Pt said she saw "black" while sitting in the bathroom. No LOC, BP 103/56,P 68, O2 SAT 99% during the episode No CP or SOB Rapid response was called TMax 102 yesterday Vital Signs Period Temp Pulse Resp BP Sys/Campbell Pulse Ox Last 24 Hr 98.2 F-102.4 F 68-90 16-20 103-120/56-68 98 PE: AOx3 Neck: surgical wound clean, no DC HEENT: PERRL, EOMI Lungs: CTA CVS: s1S2 Abd: Benign EXT: No edema Neuro: No focal deficit CMP POC Glucometer 94 UNITS (80-120) 12/20/17 10:47 Calcium 7.9 mg/dL (8.5-10.1) L 12/19/17 14:40 Current Medications Generic Name Dose Route Start Last Admin Trade Name Freq PRN Reason Stop Dose Admin Acetaminophen 325 mg 12/17/17 14:30 12/20/17 06:09 Tylenol - PO 325 mg Q6H PRN Administration PAIN LEVEL 1-5 Calcium Carbonate/Cholecalciferol 2 tab 12/20/17 22:00 Os-Brendon 500+D - PO BID YANNA Fentanyl 50 mcg 12/17/17 11:05 12/17/17 14:35 Sublimaze Injection - IVPUSH 50 mcg [id number] PRN Administration PAIN-PACU ORDER X 4 DOSES ONLY Hydromorphone HCl 1 mg 12/17/17 21:31 12/19/17 11:04 Dilaudid Injection - IM 1 mg Q4H PRN Administration PAIN LEVEL 6-10 Lactated Ringer's 1,000 mls @ 125 mls/hr 12/17/17 11:15 12/19/17 11:52 Lactated Ringers Solution IV Not Given ASDIR [facility]NA Levothyroxine Sodium 75 mcg 12/19/17 07:00 12/20/17 06:10 Synthroid - PO 75 mcg DAILY@0700 [facility] Administration Ondansetron HCl 4 mg 12/17/17 11:05 Zofran Injection IVPUSH Q6H PRN NAUSEA AND/OR VOMITING Oxycodone HCl 5 mg 12/17/17 14:58 12/20/17 06:10 Roxicodone - PO 5 mg Q6H PRN Administration PAIN LEVEL 1-5 AP: 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 Central compartment neck dissection and right modified neck dissection. Monitor calcium: 7.7, corrected 8.1 Increase calcium and vit d two tab BID Calcium with vit D two tab stat LT4 75mcg QD ? Presyncope/?vasovagal Medical consult called Hypokalemia: K+ 3.3 Kdur 40meq x1 now CMP in p.m. Fever: CXR yesterday negative Today CXR report pending WBC 9.3 Cultures report pending ID Consult Hospitalist consult called. Headache: resolved now Seen by Neurology
[2017-12-20 11:57] LABS: ALK PHOS 58 U/L (45-117)
[2017-12-20] MEDS: LACTATED RINGERS SOLUTION 1,000 ML IV SCH (12:02)
[2017-12-20] MEDS: SODIUM CHLORIDE 1,000 ML IV SCH ×2 (12:13→21:20)
[2017-12-20] MEDS ORDERED: CALCIUM 500MG/VIT-D 200 UNITS COMBO TABLET (FP) PO STA (12:14)
[2017-12-20] MEDS ORDERED: POTASSIUM CHLORIDE TABS 20 MEQ TABLET.ER (FP) PO ONE (12:45)
--- NOTE | 2017-12-20 12:52 | CON.ID ---
Consult Consult Specialty:: infectious disease Referred by:: dr dias Reason for Consultation:: fever - History of Present Illness Chief Complaint: near syncope History of Present Illness: 22 year old female s/p thyroid surgery on Sunday 12/17 for malignanct thyroid nodule drain was removed yesterday she had fever to 102 and a headache- both have resolved she notes sore throat starting before surgery she notes stuffy nose- since yesterday no cough no myalgias feels well no sick contacts no travel was hospitalized in October after wisdom tooth extraction with right sided facial abscess that resolved with unasyn/augmentin no dental complaints this am went to take shower and felt lightheaded- rapid response was called- near syncope that has resolved - History Source History Provided By: Patient, Medical Record Limitations to Obtaining History: No Limitations - Past Medical History ...LMP: 12/06/17 Infectious Disease: Yes: Other (dental abscess) Endocrine: Yes: Other (Rt Thyroid nodule) - Past Surgical History Additional Surgical History: wisdom tooth extraction 2016 - Alcohol/Substance Use Hx Alcohol Use: No - Smoking History Smoking history: Never smoked Have you smoked in the past 12 months: No - Social History ADL: Independent 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 History of Recent Travel: No Home Medications - Allergies Allergies/Adverse Reactions: Allergies Allergy/AdvReac Type Severity Reaction Status Date / Time No Known Allergies Allergy Verified 12/16/17 14:45 - Home Medications Home Medications: Ambulatory Orders Calcium Carbonate/Vitamin D3 [Calcium 500-Vit D3 200 Caplet] 1 each PO TID 10 Days #30 tablet 12/18/17 Oxycodone HCl/Acetaminophen [Percocet 5-325 mg Tablet -] 1 tab PO Q8H PRN #20 tablet MDD 3 12/18/17 Levothyroxine [Synthroid -] 75 mcg PO DAILY #30 tablet 12/19/17 Family Disease History - Family Disease History Other Family History: No family h/o Thyroid Ca Review of Systems - Review of Systems Constitutional: reports: No Symptoms. denies: Chills, Diaphoresis, Fever, Lethargy, Loss of Appetite, Malaise, Night Sweats Eyes: reports: No Symptoms Cardiovascular: reports: No Symptoms Respiratory: reports: No Symptoms. denies: Cough, SOB Gastrointestinal: reports: No Symptoms. denies: Abdominal Pain Genitourinary: reports: No Symptoms. denies: Burning Musculoskeletal: reports: No Symptoms Integumentary: reports: No Symptoms Neurological: reports: No Symptoms Physical Exam Vital Signs: Vital Signs Temperature 98.8 F 12/20/17 11:28 Pulse Rate 69 12/20/17 11:28 Respiratory Rate 18 12/20/17 11:28 Blood Pressure 105/62 12/20/17 11:28 O2 Sat by Pulse Oximetry (%) 98 12/19/17 22:00 Constitutional: Yes: Well Nourished, No Distress, Calm Eyes: Yes: Conjunctiva Clear HENT: Yes: Atraumatic, Normocephalic, Hoarseness. No: Pharyngeal Erythema, Thrush, Tonsillar Exudate Neck: Yes: Supple, Other (incision is clean and dry) Cardiovascular: Yes: Regular Rate and Rhythm Respiratory: Yes: Regular, CTA Bilaterally Gastrointestinal: Yes: Normal Bowel Sounds, Soft ...Rectal Exam: Yes: Deferred Extremities: Yes: WNL Edema: No Integumentary: Yes: WNL Wound/Incision: Yes: Clean/Dry, Well Approximated Psychiatric: Yes: Alert, Oriented Labs: CBC, BMP 12/20/17 10:35 12/20/17 10:35 cultures pending Imaging - Results Chest X-ray: Report Reviewed, Image Reviewed Problem List - Problems (1) Fever Code(s): R50.9 - FEVER, UNSPECIFIED (2) Near syncope Code(s): R55 - SYNCOPE AND COLLAPSE (3) S/P thyroidectomy Code(s): E89.0 - POSTPROCEDURAL HYPOTHYROIDISM Assessment/Plan looks well and no further fevers or chills cultures pending ?viral throat swab sent influenza screening ordered would observe off antibiotics for now near syncope- ?vaso vagal,, ?dehydration
[2017-12-20] MEDS ORDERED: MAGNESIUM 1GM/D5W - 1 GM/100 ML IVPB IVPB ONE (13:00)
--- NOTE | 2017-12-20 13:04 | CONSULT ---
Consult - text type - Consultation Consultation Note: Neurology This is a 22 y/o F with h/o thyroid nodule found on sonogram in 10/2017 to have rt nodule (1.9x1.1x1.3 cm). She was referred for FNA compelted last month and now admitted for total thyroidectomy with lymph node dissection. I was consulted because of pounding headache she had. She has prior headaches but this was worse. She reports symptoms have gotten better and minimized. Denies it effecting her during my visit and appeared comfortable. Discussed having imaging as outpatient and she was in agreement and she would like discharge today. - History Source History Provided By: Patient, Medical Record - Past Medical History ...LMP: 12/06/17 Endocrine: Yes: Other (Rt Thyroid nodule) - Alcohol/Substance Use Hx Alcohol Use: No - Smoking History Smoking history: Never smoked Have you smoked in the past 12 months: No Home Medications - Allergies Allergies/Adverse Reactions: Allergies Allergy/AdvReac Type Severity Reaction Status Date / Time No Known Allergies Allergy Verified 12/16/17 14:45 - Home Medications Home Medications: Ambulatory Orders NK [No Known Home Medication] 12/16/17 Family Disease History - Family Disease History Other Family History: No family h/o Thyroid Ca Review of Systems - Review of Systems Constitutional: reports: Malaise Eyes: reports: No Symptoms HENT: reports: No Symptoms Neck: reports: Other (Pain at surgical site) Cardiovascular: reports: No Symptoms Respiratory: reports: No Symptoms Gastrointestinal: reports: No Symptoms Genitourinary: reports: No Symptoms Musculoskeletal: reports: No Symptoms Endocrine: reports: No Symptoms Physical Exam Vital Signs: Vital Signs Temperature 98.3 F 12/18/17 09:00 Pulse Rate 80 12/18/17 09:00 Respiratory Rate 20 12/18/17 09:00 Blood Pressure 124/80 12/18/17 09:00 O2 Sat by Pulse Oximetry (%) 98 12/17/17 20:38 Constitutional: Yes: No Distress, Calm Eyes: Yes: Conjunctiva Clear, EOM Intact HENT: Yes: Atraumatic, Normocephalic Neck: Yes: Other (surgical site over front of neck, clean, no d/c) Respiratory: Yes: Regular, CTA Bilaterally Gastrointestinal: Yes: Normal Bowel Sounds, Soft Musculoskeletal: Yes: WNL Extremities: Yes: WNL Edema: No Neurological: Yes: Alert, Oriented, Cn intact, sensory normal, motor normal CBCD WBC 9.3 K/mm3 (4.0-10.0) 12/20/17 10:35 RBC 3.93 M/mm3 (3.60-5.2) 12/20/17 10:35 Hgb 10.9 GM/dL (10.7-15.3) 12/20/17 10:35 Hct 33.3 % (32.4-45.2) 12/20/17 10:35 MCV 84.8 fl (80-96) 12/20/17 10:35 MCHC 32.6 g/dl (32.0-36.0) 12/20/17 10:35 RDW 15.0 % (11.6-15.6) 12/20/17 10:35 Plt Count 265 K/MM3 (134-434) 12/20/17 10:35 MPV 7.6 fl (7.5-11.1) 12/20/17 10:35 CMP Sodium 138 mmol/L (136-145) 12/20/17 10:35 Potassium 3.3 mmol/L (3.5-5.1) L 12/20/17 10:35 Chloride 100 mmol/L (98-107) 12/20/17 10:35 Carbon Dioxide 32 mmol/L (21-32) 12/20/17 10:35 Anion Gap 6 (8-16) L 12/20/17 10:35 BUN 8 mg/dL (7-18) 12/20/17 10:35 Creatinine 0.6 mg/dL (0.55-1.02) 12/20/17 10:35 Creat Clearance w eGFR > 60 (>60) 12/20/17 10:35 Calcium 7.7 mg/dL (8.5-10.1) L 12/20/17 10:35 Total Bilirubin 0.5 mg/dL (0.2-1.0) 12/20/17 10:35 AST 12 U/L (15-37) L 12/20/17 10:35 ALT 12 U/L (12-78) 12/20/17 10:35 Alkaline Phosphatase 58 U/L (45-117) 12/20/17 10:35 Total Protein 7.1 g/dl (6.4-8.2) 12/20/17 10:35 Albumin 3.4 g/dl (3.4-5.0) 12/20/17 10:35 Assessment/Plan 22 y/o F with h/o thyroid nodule found on sonogram in 10/2017 to have rt nodule (1.9x1.1x1.3 cm). She was referred for FNA compelted last month and now admitted for total thyroidectomy with lymph node dissection. I was consulted because of pounding headache she had. She has prior headaches but this was worse. She reports symptoms have gotten better and minimized. Denies it effecting her during my visit and appeared comfortable. Discussed having imaging as outpatient and she was in agreement and she would like discharge today. Can take OTC excedrin as outpatient if strong headaches recur. Recommended rest and hydration as recent surgery may have precipitated migraine headache.
--- NOTE | 2017-12-20 14:39 | CONSULT ---
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 She was recently admitted in October for a right sided facial abscess and discharged on Abx. Earlier today a rapid response was called because of near syncope while walking to the bathroom, which the patient said she felt dizzy and lightheaded. Patient did not fall or lose consciousness. Currently, the patient complains of weakness which started after thyroid surgery. She also complains of cough that started before the surgery with white sputum production. She denies fever today, but patient was febrile 2 days ago at 102 temp. She denies, tooth pain, nausea, vomiting, sore throat, dizziness, diarrhea, lightheadedness, chest pain, SOB, chills. REVIEW OF SYSTEMS: CONSTITUTIONAL: generalized weakness Absent: fever, chills, diaphoresis, malaise, loss of appetite, weight change HEENT: nasal congestion Absent: rhinorrhea, throat pain, throat swelling, difficulty swallowing, mouth swelling, ear pain, eye pain, visual changes CARDIOVASCULAR: Absent: chest pain, syncope, palpitations, irregular heart rate, lightheadedness , peripheral edema RESPIRATORY: cough Absent: shortness of breath, dyspnea with exertion, orthopnea, wheezing, stridor , hemoptysis GASTROINTESTINAL: Absent: abdominal pain, abdominal distension, nausea, vomiting, diarrhea, constipation, melena, hematochezia GENITOURINARY: Absent: dysuria, frequency, urgency, hesitancy, hematuria, flank pain, genital pain MUSCULOSKELETAL: Absent: myalgia, arthralgia, joint swelling, back pain, neck pain SKIN: Absent: rash, itching, pallor HEMATOLOGIC/IMMUNOLOGIC: Absent: easy bleeding, easy bruising, lymphadenopathy, frequent infections ENDOCRINE: Absent: unexplained weight gain, unexplained weight loss, heat intolerance, cold intolerance NEUROLOGIC: Absent: headache, focal weakness or paresthesias, dizziness, unsteady gait, seizure, mental status changes, bladder or bowel incontinence PSYCHIATRIC: Absent: anxiety, depression, suicidal or homicidal ideation, hallucinations. PHYSICAL EXAMINATION Vital Signs - 24 hr 12/19/17 12/19/17 12/19/17 18:00 20:10 22:00 Temperature 102.4 F H 99.8 F H Pulse Rate 82 Pulse Rate [ Right side Sitting] Pulse Rate [ Right side Standing] Pulse Rate [ Right side Supine] Respiratory 18 Rate Blood Pressure 120/66 Blood Pressure [Right side Sitting] Blood Pressure [Right side Standing] Blood Pressure [Right side Supine] O2 Sat by Pulse 98 Oximetry (%) 12/19/17 12/20/17 12/20/17 22:30 06:00 09:00 Temperature 99.6 F 99.6 F 98.2 F Pulse Rate 90 80 Pulse Rate [ Right side Sitting] Pulse Rate [ Right side Standing] Pulse Rate [ Right side Supine] Respiratory 18 18 Rate Blood Pressure 115/68 107/66 Blood Pressure [Right side Sitting] Blood Pressure [Right side Standing] Blood Pressure [Right side Supine] O2 Sat by Pulse 98 Oximetry (%) 12/20/17 12/20/17 12/20/17 10:45 11:28 13:22 Temperature 98.8 F Pulse Rate 68 69 Pulse Rate [ 79 Right side Sitting] Pulse Rate [ 99 H Right side Standing] Pulse Rate [ 74 Right side Supine] Respiratory 20 18 Rate Blood Pressure 103/56 105/62 Blood Pressure 106/48 [Right side Sitting] Blood Pressure 104/58 [Right side Standing] Blood Pressure 107/57 [Right side Supine] O2 Sat by Pulse Oximetry (%) GENERAL: NAD, A/o x 3, lethargic HEAD: Normal with no signs of trauma. EYES: Pupils equal, round and reactive to light, extraocular movements intact EARS, NOSE, THROAT: Ears normal, nares patent, oropharynx clear without exudates. Moist mucous membranes. NECK: surgical incision, Normal range of motion, supple LUNGS: mild expiratory wheezing HEART: Regular rate and rhythm, normal S1 and S2 without murmur, rub or gallop. ABDOMEN: Soft, nontender, not distended, normoactive bowel sounds, no guarding, no rebound, no masses. No hepatomegaly or splenomegaly. UPPER EXTREMITIES: 2+ pulses, warm, well-perfused. No peripheral edema. LOWER EXTREMITIES: 2+ pulses, warm, well-perfused. No calf tenderness. No peripheral edema. NEUROLOGICAL: Cranial nerves II-XII intact. Normal speech. 5/5 strength throughout b/l, sensations intact b/l PSYCHIATRIC: Cooperative. Good eye contact. Appropriate mood and affect. Laboratory Results - last 24 hr 12/19/17 12/20/17 12/20/17 14:40 10:35 10:35 WBC 9.3 RBC 3.93 Hgb 10.9 Hct 33.3 MCV 84.8 MCH 27.7 MCHC 32.6 RDW 15.0 Plt Count 265 MPV 7.6 Neutrophils % 56.9 Lymphocytes % 28.3 D Monocytes % 10.2 Eosinophils % 3.7 D Basophils % 0.9 Sodium 138 Potassium 3.3 L Chloride 100 Carbon Dioxide 32 Anion Gap 6 L BUN 8 Creatinine 0.6 Creat Clearance w eGFR > 60 POC Glucometer Random Glucose 98 Calcium 7.9 L 7.7 L Phosphorus 5.0 H Magnesium 1.6 L Total Bilirubin 0.5 AST 12 L ALT 12 Alkaline Phosphatase 58 Total Protein 7.1 Albumin 3.4 TSH 3.92 H 12/20/17 10:47 WBC RBC Hgb Hct MCV MCH MCHC RDW Plt Count MPV Neutrophils % Lymphocytes % Monocytes % Eosinophils % Basophils % Sodium Potassium Chloride Carbon Dioxide Anion Gap BUN Creatinine Creat Clearance w eGFR POC Glucometer 94 Random Glucose Calcium Phosphorus Magnesium Total Bilirubin AST ALT Alkaline Phosphatase Total Protein Albumin TSH Active Medications Generic Name Dose Route Start Last Admin Trade Name Freq PRN Reason Stop Dose Admin Acetaminophen 325 mg 12/17/17 14:30 12/20/17 06:09 Tylenol - PO 325 mg Q6H PRN Administration PAIN LEVEL 1-5 Calcium Carbonate/Cholecalciferol 2 tab 12/20/17 22:00 Os-Brendon 500+D - PO BID YANNA Fentanyl 50 mcg 12/17/17 11:05 12/17/17 14:35 Sublimaze Injection - IVPUSH 50 mcg [id number] PRN Administration PAIN-PACU ORDER X 4 DOSES ONLY Hydromorphone HCl 1 mg 12/17/17 21:31 12/19/17 11:04 Dilaudid Injection - IM 1 mg Q4H PRN Administration PAIN LEVEL 6-10 Lactated Ringer's 1,000 mls @ 125 mls/hr 12/17/17 11:15 12/20/17 12:02 Lactated Ringers Solution IV Not Given ASDIR YANNA Sodium Chloride 1,000 mls @ 125 mls/hr 12/20/17 12:15 12/20/17 12:13 Normal Saline - IV 125 mls/hr ASDIR YANNA Administration Magnesium Sulfate/Dextrose 1 gm in 100 mls @ 100 mls/hr 12/20/17 13:00 Magnesium 1gm/D5w - IVPB 12/20/17 13:59 ONCE ONE Levothyroxine Sodium 75 mcg 12/19/17 07:00 12/20/17 06:10 Synthroid - PO 75 mcg DAILY@0700 YANNA Administration Magnesium Oxide 400 mg 12/20/17 22:00 Mag-Ox - PO BID YANNA Ondansetron HCl 4 mg 12/17/17 11:05 Zofran Injection IVPUSH Q6H PRN NAUSEA AND/OR VOMITING Oxycodone HCl 5 mg 12/17/17 14:58 12/20/17 06:10 Roxicodone - PO 5 mg Q6H PRN Administration PAIN LEVEL 1-5 ASSESSMENT/PLAN: Patient is a 22 y/o F with a PMHx of papillary carcinoma of thyroid s/p total thyroidectomy w/ lymph node dissection 12/17 #Near syncopal episode -likely vasovagal compounded by hypovolumia from poor oral intake and minimal hydration -IV fluids NS @ 125ml/hour -EKG unremarkable. NSR -Orthostatic vital signs -No headaches currently, neurology input appreciated, suspect worsening migraine from pain/dehydration. #URI -likely viral in origin -ID consulted -throat cultures pending -FU influenza -Rapid strep negative -CXR unremarkable -Bcx, Ucx pending -no Abx at this time #Post op Fever -resolved #Hypocalcemia -Likely secondary to total thyroidectomy -replete Ca+ as needed -Follow up endocrine reccs -FU outpatient -will monitor calcium #Papillary thyroid Ca -S/P total thyroidectomy, central compartment neck dissection and right modified neck dissection. -Cont calcium and vit d 2 tab BID -Levothyroxin 75mcg QD -FU surgery reccs -FU endocrine reccs -Pain control with Oxycodone 5mg Q6H, Tylenol 325mg #FEN -NS @ 125 ml/hour -Replete as needed -Clear liquid diet #DVT PPX -EAB Dispo: We will continue to follow the patient. Thank you for this consultative opportunity. Visit type - Emergency Visit Emergency Visit: Yes ED Registration Date: 12/17/17 Care time: The patient presented to the Emergency Department on the above date and was hospitalized for further evaluation of their emergent condition. - New Patient This patient is new to me today: Yes Date on this admission: 12/20/17 - Critical Care Critical Care patient: No
[2017-12-20] MEDS ORDERED: HEPARIN NA (PORCINE) 5,000 UNITS/ML 1ML VIAL SQ SCH (14:45)
--- NOTE | 2017-12-20 14:51 | RAPID ---
Physical Examination Vital Signs: Vital Signs Temperature 98.8 F 12/20/17 11:28 Pulse Rate 74 12/20/17 13:22 Respiratory Rate 18 12/20/17 11:28 Blood Pressure 107/57 12/20/17 13:22 O2 Sat by Pulse Oximetry (%) 98 12/20/17 09:00 Findings/Remarks: Rapid was called at 10:21 am Rapid response team arrived immediately. Patient was found laying on the bed in no acute distress. BP: 103/56 Pulse 68 O2 Sat 99% on RA As per patient, she was ambulating to bathroom, she felt lightheaded and dizzy. Says she was seeing floaters in the air. She states she has had poor appetite since yesterday and did not eat or drink anything. She also complains she feels dehydrated. She currently does not experience dizziness or lightheadedness. Patient denies headache, LOC, chest pain, dizziness, lightheadedness, sob, nausea, vomiting, and fever. Physical: NAD, A/o x 3 RRR, no M/G/R Mild Expiratory wheezing +BS, NT, ND No edema CN 2-12 intact, no facial droop, symmetric face, 5/5 strength thoughout b/l, sensations intact b/l and equally Orders: -fingerstick -1 L bolus -Orthostatic vital signs: Tachy @ 95 when standing -CBC, CMP -CXR: Unremarkable -EKG: NSR -Free T4, TSH, Ca -Mag, Phos Primary team were notified and family contacted. Primary team will FU with patient. Labs: CBC, BMP 12/20/17 10:35 12/20/17 10:35
--- NOTE | 2017-12-20 15:06 | PN ---
Progress Note, Physician - Current Medication List Current Medications: Active Medications Acetaminophen (Tylenol -) 325 mg PO Q6H PRN PRN Reason: PAIN LEVEL 1-5 Last Admin: 12/20/17 06:09 Dose: 325 mg Calcium Carbonate/Cholecalciferol (Os-Brendon 500+D -) 2 tab PO BID [facility] Fentanyl (Sublimaze Injection -) 50 mcg IVPUSH [id number] PRN PRN Reason: PAIN-PACU ORDER X 4 DOSES ONLY Last Admin: 12/17/17 14:35 Dose: 50 mcg Hydromorphone HCl (Dilaudid Injection -) 1 mg IM Q4H PRN PRN Reason: PAIN LEVEL 6-10 Last Admin: 12/19/17 11:04 Dose: 1 mg Sodium Chloride (Normal Saline -) 1,000 mls @ 125 mls/hr IV ASDIR [facility] Last Admin: 12/20/17 12:13 Dose: 125 mls/hr Levothyroxine Sodium (Synthroid -) 75 mcg PO DAILY@0700 [facility] Last Admin: 12/20/17 06:10 Dose: 75 mcg Magnesium Oxide (Mag-Ox -) 400 mg PO BID [facility] Ondansetron HCl (Zofran Injection) 4 mg IVPUSH Q6H PRN PRN Reason: NAUSEA AND/OR VOMITING - Objective Vital Signs: Vital Signs Temperature 98.8 F 12/20/17 11:28 Pulse Rate 74 12/20/17 13:22 Respiratory Rate 18 12/20/17 11:28 Blood Pressure 107/57 12/20/17 13:22 O2 Sat by Pulse Oximetry (%) 98 12/20/17 09:00 Labs: CBC, BMP 12/20/17 10:35 12/20/17 10:35 Assessment/Plan Events noted. patient is talking, at this tiem. Denies any dizziness, Her mother brought toast which she has had without difficulty. Neck wound is clean , no sign of seroma. Trachea is central. respond to questions. Afebrile today. Continue regular diet. Low K , and magnesium , being supplemented. Serum calcium 7.1 mgm. She has no headaches. Hypocalcemia, hypkalemia, hypomagnesemia. S/P Total thyroidectomy. H/O dizziness, and headaches. Continue to monitor.
--- NOTE | 2017-12-20 15:56 | PN ---
Teaching Attending Note Name of Resident: Rico Palafox ATTENDING PHYSICIAN STATEMENT I saw and evaluated the patient. I reviewed the resident's note and discussed the case with the resident. I agree with the resident's findings and plan as documented with exceptions mentioned below. SUBJECTIVE: patient seen and examined. Denies any dizziness, or new symptoms. Resting, still with not much PO intake per her, overall weak since her surgery but improving. No nausea, vomiting, diarrhea noted. reports some sore throat starting before surgery and stuffy nose. No concerning symptoms right now. OBJECTIVE: Vital Signs Period Temp Pulse Resp BP Sys/Campbell Pulse Ox Last 24 Hr 98.2 F-102.4 F 68-99 18-20 103-120/48-68 98-98 Intake & Output 12/17/17 12/18/17 12/19/17 12/20/17 23:59 23:59 23:59 23:59 Intake Total 1700 3300 750 1100 Output Total 660 1970 Balance 1040 8553 764 2189 GENERAL: Awake, alert, and fully oriented, in no acute distress. HEAD: Normal with no signs of trauma. EYES: Pupils equal, round and reactive to light, extraocular movements intact, sclera anicteric, conjunctiva clear. EARS, NOSE, THROAT: Ears normal, nares patent, oropharynx clear without exudates. Moist mucous membranes. NECK: Well healing surgical incision with no surrounding swelling/erythema or discharge LUNGS: Breath sounds equal, clear to auscultation bilaterally. No wheezes, and no crackles. No accessory muscle use. HEART: Regular rate and rhythm, normal S1 and S2 without murmur, rub or gallop. ABDOMEN: Soft, nontender, not distended, normoactive bowel sounds, no guarding, no rebound, no masses. MUSCULOSKELETAL: Normal range of motion at all joints. No bony deformities or tenderness. No CVA tenderness. UPPER EXTREMITIES: 2+ pulses, warm, well-perfused. No cyanosis. No clubbing. No peripheral edema. LOWER EXTREMITIES: 2+ pulses, warm, well-perfused. No calf tenderness. No peripheral edema. NEUROLOGICAL: Cranial nerves II-XII intact. Normal speech. PSYCHIATRIC: Cooperative. Good eye contact. Appropriate mood and affect. SKIN: Warm, dry, normal turgor, no rashes or lesions noted, normal capillary refill. Active Medications Generic Name Dose Route Start Last Admin Trade Name Freq PRN Reason Stop Dose Admin Acetaminophen 325 mg 12/17/17 14:30 12/20/17 06:09 Tylenol - PO 325 mg Q6H PRN Administration PAIN LEVEL 1-5 Calcium Carbonate/Cholecalciferol 2 tab 12/20/17 22:00 Os-Brendon 500+D - PO BID YANNA Fentanyl 50 mcg 12/17/17 11:05 12/17/17 14:35 Sublimaze Injection - IVPUSH 50 mcg [id number] PRN Administration PAIN-PACU ORDER X 4 DOSES ONLY Hydromorphone HCl 1 mg 12/17/17 21:31 12/19/17 11:04 Dilaudid Injection - IM 1 mg Q4H PRN Administration PAIN LEVEL 6-10 Sodium Chloride 1,000 mls @ 125 mls/hr 12/20/17 12:15 12/20/17 12:13 Normal Saline - IV 125 mls/hr ASDIR YANNA Administration Levothyroxine Sodium 75 mcg 12/19/17 07:00 12/20/17 06:10 Synthroid - PO 75 mcg DAILY@0700 YANNA Administration Magnesium Oxide 400 mg 12/20/17 22:00 Mag-Ox - PO BID [facility] Ondansetron HCl 4 mg 12/17/17 11:05 Zofran Injection IVPUSH Q6H PRN NAUSEA AND/OR VOMITING Laboratory Results - last 24 hr 12/20/17 12/20/17 12/20/17 10:35 10:35 10:47 WBC 9.3 RBC 3.93 Hgb 10.9 Hct 33.3 MCV 84.8 MCH 27.7 MCHC 32.6 RDW 15.0 Plt Count 265 MPV 7.6 Neutrophils % 56.9 Lymphocytes % 28.3 D Monocytes % 10.2 Eosinophils % 3.7 D Basophils % 0.9 Sodium 138 Potassium 3.3 L Chloride 100 Carbon Dioxide 32 Anion Gap 6 L BUN 8 Creatinine 0.6 Creat Clearance w eGFR > 60 POC Glucometer 94 Random Glucose 98 Calcium 7.7 L Phosphorus 5.0 H Magnesium 1.6 L Total Bilirubin 0.5 AST 12 L ALT 12 Alkaline Phosphatase 58 Total Protein 7.1 Albumin 3.4 TSH 3.92 H Microbiology 12/20/17 13:00 Throat Group A Strep Rapid Antigen - Final EKG Sinus rhythm, no acute ST-T changes CXR - no acute process ASSESSMENT AND PLAN: 22 yof with papillary thyroid carcinoma s/p total thyroidectomy with right neck lymph node dissection 12/17, post operative course complicated by hypocalcemia, then fevers upto 102.4 on 12/19, today with near syncopal episode while walking to bathroom. -Near syncope,likely vasovagal compounded by hypovolumia from poor oral intake and minimal hydration (tachycardic on orthostatic vital signs). -Papillary thyroid carcinoma s/p total thyroidectomy/right neck lymph node dissection 10/2017 -Post operative fever x 1 -Headache -Hypocalcemia -Hypokalemia -Hypomagnesemia -Iatrogenic hypothyroidism - H/o facial abscess after wisdom tooth extraction 10/2017 Plan: IVF, NS at 125 ml/hr, encourage oral intake. No further fevers, ID input appreciated. Strep throat neg, monitor off antibiotics. No headaches currently, neurology input appreciated, suspect worsening migraine from pain/dehydration. Replete lytes. Levothyroxine per endocrine. Defer anti-coagulation to Dr. Grace, patient ambulating as discussed with him. Recommends discussed with Dr. Grace. Total consult time spent including patient visit, discussion with family, Dr. Rojas, Dr. Grace and co-ordination of care 45 min.
[2017-12-20 21:07] LABS: ALBUMIN 3.4 g/dl (3.4-5.0); ANION GAP 4 (8-16); BLOOD UREA NITROGEN 7 mg/dL (7-18); CALCIUM 8.3 mg/dL (8.5-10.1); CHLORIDE 104 mmol/L (98-107); CO2 31 mmol/L (21-32); GLUCOSE,RANDOM 84 mg/dL (74-106); POTASSIUM 4.4 mmol/L (3.5-5.1); SODIUM 139 mmol/L (136-145)
[2017-12-20 21:12] LABS: ALK PHOS 59 U/L (45-117); BILIRUBIN,TOTAL 0.6 mg/dL (0.2-1.0); CREATININE 0.5 mg/dL (0.55-1.02); SGOT/AST 13 U/L (15-37); SGPT/ALT 13 U/L (12-78)
[2017-12-20] MEDS: MAGNESIUM OXIDE 400 MG TABLET (FP) PO SCH (21:21)
[2017-12-20] MEDS ORDERED: CALCIUM 500MG/VIT-D 200 UNITS COMBO TABLET (FP) PO SCH (22:00)
--- NOTE | 2017-12-20 23:12 | EKG ---
Test Reason : Blood Pressure : / mmHG Vent. Rate : 064 BPM Atrial Rate : 064 BPM P-R Int : 204 ms QRS Dur : 098 ms QT Int : 422 ms P-R-T Axes : 020 065 052 degrees QTc Int : 435 ms NORMAL SINUS RHYTHM NORMAL ECG WHEN COMPARED WITH ECG OF 19-FEB-2011 22:35, NO SIGNIFICANT CHANGE WAS FOUND Confirmed by KYLER FLETCHER MD ([id number]) on 12/20/2017 11:12:31 PM Referred By: Salma Grace Confirmed By:KYLER FLETCHER MD
[2017-12-21] MEDS: SODIUM CHLORIDE 1,000 ML IV SCH (05:07)
[2017-12-21] MEDS: LEVOTHYROXINE NA 75 MCG TABLET (FP) PO SCH (06:05)
--- NOTE | 2017-12-21 06:44 | PN ---
Physical Exam: SUBJECTIVE: Patient seen and examined. OBJECTIVE: Vital Signs Period Temp Pulse Resp BP Sys/Campbell Pulse Ox Last 24 Hr 98.1 F-98.9 F 68-99 17-20 103-116/48-70 98-98 GENERAL: The patient is awake, alert, and fully oriented, in no acute distress. HEAD: Normal with no signs of trauma. EYES: PERRL, extraocular movements intact, sclera anicteric, conjunctiva clear. No ptosis. ENT: Ears normal, nares patent, oropharynx clear without exudates, moist mucous membranes. NECK: Trachea midline, full range of motion, supple. LUNGS: Breath sounds equal, clear to auscultation bilaterally, no wheezes, no crackles, no accessory muscle use. HEART: Regular rate and rhythm, S1, S2 without murmur, rub or gallop. ABDOMEN: Soft, nontender, nondistended, normoactive bowel sounds, no guarding, no rebound, no hepatosplenomegaly, no masses. EXTREMITIES: 2+ pulses, warm, well-perfused, no edema. NEUROLOGICAL: Cranial nerves II through XII grossly intact. Normal speech, gait not observed. PSYCH: Normal mood, normal affect. SKIN: Warm, dry, normal turgor, no rashes or lesions noted Laboratory Results - last 24 hr 12/20/17 12/20/17 12/20/17 10:35 10:35 10:47 WBC 9.3 RBC 3.93 Hgb 10.9 Hct 33.3 MCV 84.8 MCH 27.7 MCHC 32.6 RDW 15.0 Plt Count 265 MPV 7.6 Neutrophils % 56.9 Lymphocytes % 28.3 D Monocytes % 10.2 Eosinophils % 3.7 D Basophils % 0.9 Sodium 138 Potassium 3.3 L Chloride 100 Carbon Dioxide 32 Anion Gap 6 L BUN 8 Creatinine 0.6 Creat Clearance w eGFR > 60 POC Glucometer 94 Random Glucose 98 Calcium 7.7 L Phosphorus 5.0 H Magnesium 1.6 L Total Bilirubin 0.5 AST 12 L ALT 12 Alkaline Phosphatase 58 Total Protein 7.1 Albumin 3.4 TSH 3.92 H 12/20/17 12/20/17 15:30 19:30 WBC RBC Hgb Hct MCV MCH MCHC RDW Plt Count MPV Neutrophils % Lymphocytes % Monocytes % Eosinophils % Basophils % Sodium 139 Potassium 4.4 Chloride 104 Carbon Dioxide 31 Anion Gap 4 L BUN 7 Creatinine 0.5 L Creat Clearance w eGFR > 60 POC Glucometer Random Glucose 84 Calcium 8.6 8.3 L Phosphorus Magnesium Total Bilirubin 0.6 AST 13 L ALT 13 Alkaline Phosphatase 59 Total Protein 7.0 Albumin 3.4 TSH Active Medications Generic Name Dose Route Start Last Admin Trade Name Freq PRN Reason Stop Dose Admin Acetaminophen 325 mg 12/17/17 14:30 12/20/17 21:46 Tylenol - PO 325 mg Q6H PRN Administration PAIN LEVEL 1-5 Calcium Carbonate/Cholecalciferol 2 tab 12/20/17 22:00 12/20/17 21:20 Os-Brendon 500+D - PO 2 tab BID YANNA Administration Fentanyl 50 mcg 12/17/17 11:05 12/17/17 14:35 Sublimaze Injection - IVPUSH 50 mcg [id number] PRN Administration PAIN-PACU ORDER X 4 DOSES ONLY Sodium Chloride 1,000 mls @ 125 mls/hr 12/20/17 12:15 12/21/17 05:07 Normal Saline - IV 125 mls/hr ASDIR YANNA Administration Levothyroxine Sodium 75 mcg 12/19/17 07:00 12/21/17 06:05 Synthroid - PO 75 mcg DAILY@0700 YANNA Administration Magnesium Oxide 400 mg 12/20/17 22:00 12/20/17 21:21 Mag-Ox - PO 400 mg BID YANNA Administration Ondansetron HCl 4 mg 12/17/17 11:05 Zofran Injection IVPUSH Q6H PRN NAUSEA AND/OR VOMITING ASSESSMENT/PLAN:
[2017-12-21 07:02] VITALS: TEMP 98.4
[2017-12-21 08:51] LABS: ALBUMIN 3.3 g/dl (3.4-5.0); ANION GAP 5 (8-16); BLOOD UREA NITROGEN 5 mg/dL (7-18); CALCIUM 7.7 mg/dL (8.5-10.1); CHLORIDE 105 mmol/L (98-107); CO2 28 mmol/L (21-32); GLUCOSE,RANDOM 80 mg/dL (74-106); MAGNESIUM 1.7 mg/dL (1.8-2.4); PHOSPHOROUS 3.9 mg/dL (2.5-4.9); POTASSIUM 4.2 mmol/L (3.5-5.1); SGOT/AST 13 U/L (15-37); SODIUM 138 mmol/L (136-145)
[2017-12-21 08:52] VITALS: BP 113/67; PULSE 80
[2017-12-21 08:53] LABS: ALK PHOS 57 U/L (45-117); BILIRUBIN,TOTAL 0.5 mg/dL (0.2-1.0); CREATININE 0.4 mg/dL (0.55-1.02); SGPT/ALT 13 U/L (12-78); TOT PROT 6.9 g/dl (6.4-8.2)
--- NOTE | 2017-12-21 09:00 | PN ---
Progress Note (short form) - Note Progress Note: Feels good Denies any complaints Ambulating without any problem Vital Signs Period Temp Pulse Resp BP Sys/Campbell Pulse Ox Last 24 Hr 98.1 F-98.9 F 68-110 17-20 103-132/48-88 98-98 PE: AOx3 Neck: surgical wound clean, no DC HEENT: PERRL, EOMI Lungs: CTA CVS: s1S2 Abd: Benign EXT: No edema Neuro: No focal deficit CMP Sodium 138 mmol/L (136-145) 12/21/17 07:45 Potassium 4.2 mmol/L (3.5-5.1) 12/21/17 07:45 Chloride 105 mmol/L (98-107) 12/21/17 07:45 Carbon Dioxide 28 mmol/L (21-32) 12/21/17 07:45 Anion Gap 5 (8-16) L 12/21/17 07:45 BUN 5 mg/dL (7-18) L 12/21/17 07:45 Creatinine 0.4 mg/dL (0.55-1.02) L 12/21/17 07:45 Creat Clearance w eGFR > 60 (>60) 12/21/17 07:45 POC Glucometer 94 UNITS (80-120) 12/20/17 10:47 Random Glucose 80 mg/dL (74-106) 12/21/17 07:45 Calcium 7.7 mg/dL (8.5-10.1) L 12/21/17 07:45 Phosphorus 3.9 mg/dL (2.5-4.9) 12/21/17 07:45 Magnesium 1.7 mg/dL (1.8-2.4) L 12/21/17 07:45 Total Bilirubin 0.5 mg/dL (0.2-1.0) 12/21/17 07:45 AST 13 U/L (15-37) L 12/21/17 07:45 ALT 13 U/L (12-78) 12/21/17 07:45 Alkaline Phosphatase 57 U/L (45-117) 12/21/17 07:45 Total Protein 6.9 g/dl (6.4-8.2) 12/21/17 07:45 Albumin 3.3 g/dl (3.4-5.0) L 12/21/17 07:45 TSH 3.92 uIU/ml (0.358-3.74) H 12/20/17 10:35 Current Medications Generic Name Dose Route Start Last Admin Trade Name Freq PRN Reason Stop Dose Admin Acetaminophen 325 mg 12/17/17 14:30 12/20/17 21:46 Tylenol - PO 325 mg Q6H PRN Administration PAIN LEVEL 1-5 Calcium Carbonate/Cholecalciferol 2 tab 12/20/17 22:00 12/20/17 21:20 Os-Brendon 500+D - PO 2 tab BID YANNA Administration Fentanyl 50 mcg 12/17/17 11:05 12/17/17 14:35 Sublimaze Injection - IVPUSH 50 mcg [id number] PRN Administration PAIN-PACU ORDER X 4 DOSES ONLY Sodium Chloride 1,000 mls @ 125 mls/hr 12/20/17 12:15 12/21/17 05:07 Normal Saline - IV 125 mls/hr ASDIR YANNA Administration Levothyroxine Sodium 75 mcg 12/19/17 07:00 12/21/17 06:05 Synthroid - PO 75 mcg DAILY@0700 YANNA Administration Magnesium Oxide 400 mg 12/20/17 22:00 12/20/17 21:21 Mag-Ox - PO 400 mg BID YANNA Administration Ondansetron HCl 4 mg 12/17/17 11:05 Zofran Injection IVPUSH Q6H PRN NAUSEA AND/OR VOMITING AP: 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 Central compartment neck dissection and right modified neck dissection. Monitor calcium: 7.7, corrected 8.1 calcium and vit d two tabs TID LT4 75mcg QD ? Presyncope/ probably vasovagal Medical consult noted Hypokalemia: resolved K+ 4.2 today Kdur 40meq x1 given Fever: resolved CXR negative WBC 9.3 Cultures report pending ID Consult noted Hospitalist consult called. Headache: resolved now Seen by Neurology
[2017-12-21] MEDS: CALCIUM 500MG/VIT-D 200 UNITS COMBO TABLET (FP) PO SCH (09:27)
[2017-12-21] MEDS: MAGNESIUM OXIDE 400 MG TABLET (FP) PO SCH (09:28)
--- NOTE | 2017-12-21 09:42 | PN ---
Progress Note, Physician - Current Medication List Current Medications: Active Medications Acetaminophen (Tylenol -) 325 mg PO Q6H PRN PRN Reason: PAIN LEVEL 1-5 Last Admin: 12/20/17 21:46 Dose: 325 mg Calcium Carbonate/Cholecalciferol (Os-Brendon 500+D -) 2 tab PO BID [facility] Stop: 12/21/17 10:00 Last Admin: 12/21/17 09:27 Dose: 2 tab Calcium Carbonate/Cholecalciferol (Os-Brendon 500+D -) 2 tab PO TID [facility] Fentanyl (Sublimaze Injection -) 50 mcg IVPUSH [id number] PRN PRN Reason: PAIN-PACU ORDER X 4 DOSES ONLY Last Admin: 12/17/17 14:35 Dose: 50 mcg Sodium Chloride (Normal Saline -) 1,000 mls @ 125 mls/hr IV ASDIR [facility] Last Admin: 12/21/17 05:07 Dose: 125 mls/hr Levothyroxine Sodium (Synthroid -) 75 mcg PO DAILY@0700 [facility] Last Admin: 12/21/17 06:05 Dose: 75 mcg Magnesium Oxide (Mag-Ox -) 400 mg PO BID [facility] Last Admin: 12/21/17 09:28 Dose: 400 mg Ondansetron HCl (Zofran Injection) 4 mg IVPUSH Q6H PRN PRN Reason: NAUSEA AND/OR VOMITING - Objective Vital Signs: Vital Signs Temperature 98.4 F 12/21/17 07:03 Pulse Rate 80 12/21/17 08:51 Respiratory Rate 18 12/21/17 07:03 Blood Pressure 113/67 12/21/17 08:51 O2 Sat by Pulse Oximetry (%) 98 12/20/17 22:00 Labs: CBC, BMP 12/20/17 10:35 12/21/17 07:45 Assessment/Plan Patient is awkae alert, She has no complaints. Neck wound is clean, Her voice hs improved/ Denies any dizziness, Afebrile Continue regular diet. Serum calcium 7.7mgm She has no headaches. S/P Total thyroidectomy. Pathology was reviewed with pathologist. 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 One grosssly involved , and enlarged paratracheal lymph node. Discharge planning.
--- NOTE | 2017-12-21 09:57 | PN ---
Progress Note (short form) - Note Progress Note: Neurology This is a 22 y/o F with h/o thyroid nodule found on sonogram in 10/2017 to have rt nodule (1.9x1.1x1.3 cm). She was referred for FNA compelted last month and now admitted for total thyroidectomy with lymph node dissection. I was consulted because of pounding headache she had. She has prior headaches but this was worse. She reports symptoms have gotten better and no headache this morning. Denies it effecting her during my visit and appeared comfortable. Awaiting discharge and no new neurologic issues overnight. Active Medications Acetaminophen (Tylenol -) 325 mg PO Q6H PRN PRN Reason: PAIN LEVEL 1-5 Last Admin: 12/20/17 21:46 Dose: 325 mg Calcium Carbonate/Cholecalciferol (Os-Brendon 500+D -) 2 tab PO BID [facility] Stop: 12/21/17 10:00 Last Admin: 12/21/17 09:27 Dose: 2 tab Calcium Carbonate/Cholecalciferol (Os-Brendon 500+D -) 2 tab PO TID [facility] Fentanyl (Sublimaze Injection -) 50 mcg IVPUSH [id number] PRN PRN Reason: PAIN-PACU ORDER X 4 DOSES ONLY Last Admin: 12/17/17 14:35 Dose: 50 mcg Levothyroxine Sodium (Synthroid -) 75 mcg PO DAILY@0700 [facility] Last Admin: 12/21/17 06:05 Dose: 75 mcg Magnesium Oxide (Mag-Ox -) 400 mg PO BID [facility] Last Admin: 12/21/17 09:28 Dose: 400 mg Ondansetron HCl (Zofran Injection) 4 mg IVPUSH Q6H PRN PRN Reason: NAUSEA AND/OR VOMITING Physical Exam Last Vital Signs Temp Pulse Resp BP Pulse Ox 98.4 F 80 18 113/67 98 12/21/17 07:03 12/21/17 08:51 12/21/17 07:03 12/21/17 08:51 12/20/17 22:00 Constitutional: Yes: No Distress, Calm Eyes: Yes: Conjunctiva Clear, EOM Intact HENT: Yes: Atraumatic, Normocephalic Neck: Yes: Other (surgical site over front of neck, clean, no d/c) Respiratory: Yes: Regular, CTA Bilaterally Gastrointestinal: Yes: Normal Bowel Sounds, Soft Musculoskeletal: Yes: WNL Extremities: Yes: WNL Edema: No Neurological: Yes: Alert, Oriented, Cn intact, sensory normal, motor normal CBCD WBC 9.3 K/mm3 (4.0-10.0) 12/20/17 10:35 RBC 3.93 M/mm3 (3.60-5.2) 12/20/17 10:35 Hgb 10.9 GM/dL (10.7-15.3) 12/20/17 10:35 Hct 33.3 % (32.4-45.2) 12/20/17 10:35 MCV 84.8 fl (80-96) 12/20/17 10:35 MCHC 32.6 g/dl (32.0-36.0) 12/20/17 10:35 RDW 15.0 % (11.6-15.6) 12/20/17 10:35 Plt Count 265 K/MM3 (134-434) 12/20/17 10:35 MPV 7.6 fl (7.5-11.1) 12/20/17 10:35 CMP Sodium 138 mmol/L (136-145) 12/21/17 07:45 Potassium 4.2 mmol/L (3.5-5.1) 12/21/17 07:45 Chloride 105 mmol/L (98-107) 12/21/17 07:45 Carbon Dioxide 28 mmol/L (21-32) 12/21/17 07:45 Anion Gap 5 (8-16) L 12/21/17 07:45 BUN 5 mg/dL (7-18) L 12/21/17 07:45 Creatinine 0.4 mg/dL (0.55-1.02) L 12/21/17 07:45 Creat Clearance w eGFR > 60 (>60) 12/21/17 07:45 Calcium 7.7 mg/dL (8.5-10.1) L 12/21/17 07:45 Total Bilirubin 0.5 mg/dL (0.2-1.0) 12/21/17 07:45 AST 13 U/L (15-37) L 12/21/17 07:45 ALT 13 U/L (12-78) 12/21/17 07:45 Alkaline Phosphatase 57 U/L (45-117) 12/21/17 07:45 Total Protein 6.9 g/dl (6.4-8.2) 12/21/17 07:45 Albumin 3.3 g/dl (3.4-5.0) L 12/21/17 07:45 Assessment/Plan 22 y/o F with h/o thyroid nodule found on sonogram in 10/2017 to have rt nodule (1.9x1.1x1.3 cm). She was referred for FNA compelted last month and now admitted for total thyroidectomy with lymph node dissection. I was consulted because of pounding headache she had. She has prior headaches but this was worse. She reports symptoms have gotten better and essentially resolved. Denies it effecting her during my visit and appeared comfortable. Can take OTC excedrin as outpatient if strong headaches recur. Recommended rest and hydration as recent surgery may have precipitated migraine headache. No new events, neurologically stable.
--- NOTE | 2017-12-21 13:30 | PN ---
Teaching Attending Note Name of Resident: Rico Palafox ATTENDING PHYSICIAN STATEMENT I saw and evaluated the patient. I reviewed the resident's note and discussed the case with the resident. I agree with the resident's findings and plan as documented. SUBJECTIVE:c/o rhinorrhea and productive cough of yellow sputum. denies CP, SOB , fever, chills, N/V/C/D, no recurrent episodes of dizzyness or near-syncope OBJECTIVE: Last Vital Signs Temp Pulse Resp BP Pulse Ox 98.4 F 80 18 113/67 98 12/21/17 07:03 12/21/17 08:51 12/21/17 09:00 12/21/17 08:51 12/21/17 09:00 General NAD HEENT no sinus tenderness CV S1 S2 RRR no murmur/rub/gallop Lungs CTA B/L no wheezing/rales/rhonchi ASSESSMENT AND PLAN: 22 yof with papillary thyroid carcinoma s/p total thyroidectomy with right neck lymph node dissection 12/17, post operative course complicated by hypocalcemia, then fevers up to 102.4 on 12/19, today with near syncopal episode while walking to bathroom. 1. Near syncope- likely vasovagal and +orthostatics. with poor oral intake prior to surgery. s/p IVF aggressive hydration. will repeat orthostatics to see if persists. 2. Papillary thyroid carcinoma s/p total thyroidectomy/right neck lymph node dissection 10/2017 3. Post operative fever x 1- afebrile x48H. no leukocytosis. likley atelectasis 4. HURT -resolved 5. Rhinorrhea- liekly some viral illness. throat cx negative. BCx NGTD. CXR is clear. would hold abx at this time. ID on board. 6. no medical contraindication to discharge today pending repeat orthostatics. please call back if needed
[2017-12-21] MEDS ORDERED: CALCIUM 500MG/VIT-D 200 UNITS COMBO TABLET (FP) PO SCH (14:00)
--- NOTE | 2017-12-21 16:58 | PN ---
Physical Exam: SUBJECTIVE: Patient seen and examined. No acute events overnight. Complains of a runny nose and cough with yellow sputum. Denies fevers, chills, nausea, vomiting, chest pain, sob, dizziness, and lightheadedness. OBJECTIVE: Vital Signs Period Temp Pulse Resp BP Sys/Campbell Pulse Ox Last 24 Hr 98.1 F-98.9 F 70-110 17-20 108-132/60-88 98-98 GENERAL: NAD, A/o x 3 HEAD: Normal with no signs of trauma. EYES: Pupils equal, round and reactive to light, extraocular movements intact EARS, NOSE, THROAT: Ears normal, nares patent, oropharynx clear without exudates. Moist mucous membranes. NECK: surgical incision, Normal range of motion, supple LUNGS: CTA b/l, no rales rhonchi or wheezing HEART: Regular rate and rhythm, normal S1 and S2 without murmur, rub or gallop. ABDOMEN: Soft, nontender, not distended, normoactive bowel sounds, no guarding, no rebound, no masses. No hepatomegaly or splenomegaly. UPPER EXTREMITIES: 2+ pulses, warm, well-perfused. No peripheral edema. LOWER EXTREMITIES: 2+ pulses, warm, well-perfused. No calf tenderness. No peripheral edema. NEUROLOGICAL: Cranial nerves II-XII intact. Normal speech. 5/5 strength throughout b/l, sensations intact b/l PSYCHIATRIC: Cooperative. Good eye contact. Appropriate mood and affect. Laboratory Results - last 24 hr 12/20/17 12/21/17 19:30 07:45 Sodium 139 138 Potassium 4.4 4.2 Chloride 104 105 Carbon Dioxide 31 28 Anion Gap 4 L 5 L BUN 7 5 L Creatinine 0.5 L 0.4 L Creat Clearance w eGFR > 60 > 60 Random Glucose 84 80 Calcium 8.3 L 7.7 L Phosphorus 3.9 Magnesium 1.7 L Total Bilirubin 0.6 0.5 AST 13 L 13 L ALT 13 13 Alkaline Phosphatase 59 57 Total Protein 7.0 6.9 Albumin 3.4 3.3 L ASSESSMENT/PLAN: #Near syncopal episode -likely vasovagal and + orthostatics. -IV fluids NS @ 125ml/hour -EKG unremarkable. NSR -s/p IVF aggressive hydration -will repeat orthostatics to see if persists. #URI -likely viral in origin -ID consulted -throat cultures negative -Rapid strep negative -CXR unremarkable -Bcx, Ucx pending -no Abx at this time #Post op Fever -resolved #Hypocalcemia -Likely secondary to total thyroidectomy -replete Ca+ as needed -Follow up endocrine reccs -FU outpatient -will monitor calcium #Papillary thyroid Ca -S/P total thyroidectomy, central compartment neck dissection and right modified neck dissection. -Cont calcium and vit d 2 tab BID -Levothyroxin 75mcg QD -FU surgery reccs -FU endocrine reccs -Pain control with Oxycodone 5mg Q6H, Tylenol 325mg #FEN -NS @ 125 ml/hour -Replete as needed -Clear liquid diet #DVT PPX -EAB Visit type - Emergency Visit Emergency Visit: No - New Patient This patient is new to me today: No - Critical Care Critical Care patient: No - Discharge Referral Referred to [facility] Med P.C.: No
--- NOTE | 2017-12-22 16:42 | PATH ---
Surgical Pathology Report Patient Name: GENESIS PAREDES [facility]. Rec. #: [id number] /Age/Gender: 1995 (Age: 22) / F Account: [id number] Location: [address] [place] [address]/[facility] Taken: 12/17/2017 Received: 12/17/2017 Reported: 12/22/2017 Physicians: Jamie Grace M.D. Specimen(s) Received A: RIGHT THYROID LOBE B: LEFT THYROID LOBE C: CENTRAL COMPARTMENT LYMPH NODE D: RIGHT JUGULAR CHAIN LYMPH NODE Clinical History Thyroid nodule Intraoperative Consult Diagnosis Thyroid, Right lobe and Isthmus, Berny-thyroidectomy (frozen section): Papillary thyroid carcinoma. Brian Montoya M.D., 12/17/17 Final Diagnosis A. THYROID, RIGHT AND ISTHMUS, HEMITHYROIDECTOMY(FS): PAPILLARY THYROID CARCINOMA, CLASSICAL VARIANT. CARCINOMA MEASURES 1.5 CM IN GREATEST MICROSCOPIC DIMENSION. NO DEFINITIVE LYMPHOVASCULAR INVASION IDENTIFIED. FOCAL EXTRA THYROIDAL EXTENSION IDENTIFIED, LIMITED, SEE COMMENT. SURGICAL MARGINS ARE NEGATIVE. ONE OF TWO PERITHYROIDAL LYMPH NODES WITH METASTATIC CARCINOMA, MEASURING 2 MM IN GREATEST MICROSCOPIC DIMENSION (1/2). NO EXTRANODAL EXTENSION IDENTIFIED. REMAINDER OF THE PARENCHYMA SHOWS CHRONIC LYMPHOCYTIC THYROIDITIS. SEE INVASIVE SUMMARY BELOW. B. THYROID, LEFT, LOBECTOMY: PAPILLARY MICROCARCINOMA, 4 MM, IN GREATEST MICROSCOPIC DIMENSION NO LYMPHOVASCULAR INVASION IDENTIFIED. NO EXTRA THYROIDAL EXTENSION IDENTIFIED. SURGICAL MARGINS ARE NEGATIVE. REMAINDER OF THE PARENCHYMA SHOWS CHRONIC LYMPHOCYTIC THYROIDITIS SEE INVASIVE SUMMARY BELOW. C. LYMPH NODES, CENTRAL COMPARTMENT, DISSECTION: FIVE OF ELEVEN LYMPH NODES WITH METASTATIC CARCINOMA (5/11) TUMOR DEPOSITS MEASURES 1 MM IN GREATEST MICROSCOPIC DIMENSION. NO EXTRANODAL EXTENSION IDENTIFIED. FEW LYMPH NODES WITH BENIGN SQUAMOUS INCLUSIONS. TWO PARATHYROID GLANDS PRESENT. SEE COMMENT. D. JUGULAR CHAIN LYMPH NODE, LEVEL III-IV, RIGHT, EXCISION: TWO OF TWO LYMPH NODES WITH METASTATIC CARCINOMA (2/2). TUMOR DEPOSIT MEASURES 1 MM IN GREATEST MICROSCOPIC DIMENSION. NO EXTRANODAL EXTENSION IDENTIFIED. PATHOLOGIC STAGE (pTNM): pT1b pN1b Comment: Assessment of extrathyroidal extension is limited to areas adjacent margin/perithyroidal adipose soft tissue. Immunohistochemical stains performed and interpreted at [facility] for cytokeratin AE1/3 highlights the metastatic carcinoma deposits in parts C and D. The benign squamous inclusions within the lymph nodes in part C are negative for TTF-1. Molecular studies (Thyroseq) are pending, findings will be reported separately. Findings discussed with Dr. Grace. Comments Thyroid: Surgical Pathology Cancer Case Summary (Based on AJCC 8 th edition) Procedure _X_ Total thyroidectomy Tumor Focality _X_ Multifocal (Two foci) Tumor Site _X_ Right lobe (Largest foci) _X_ Left lobe (Smaller foci, Micropapillary carcinoma) Tumor Size Greatest dimension (centimeters): 1.5 cm Histologic Type Papillary Carcinomas _X_ Papillary carcinoma, classic (usual, conventional) Margins _X_ Uninvolved by carcinoma Angioinvasion (Vascular Invasion) _X_ Not identified Lymphatic Invasion _X_ No definitive evidence of vascular invasion Extrathyroidal Extension _X_ Present (Minor) Limited assessment: to areas adjacent margin/perithyroidal adipose soft tissue Regional Lymph Nodes Lymph Node Examination Number of Lymph Nodes Involved: 8 Specify Tsering Levels _X_ Level - pretracheal, paratracheal and prelaryngeal/Delphian, perithyroidal (central compartment dissection) _X_ Level III-IV (specify): Right jugular chain Number of Lymph Nodes Examined: 15 Specify Tsering Levels Level - pretracheal, paratracheal and prelaryngeal/Delphian, perithyroidal (central compartment dissection):13 Level III-IV (lateral neck dissection) Right jugular: 2 Lymph Node Metastasis Size of Largest Metastatic Deposit (centimeters):2 mm, perithyroidal Extranodal Extension (BERNIE) _X_ Absent Pathologic Stage Classification (pTNM, AJCC 8th Edition) Primary Tumor (pT) _X_ pT1b: Tumor >1 cm but =2 cm in greatest dimension, limited to the thyroid Regional Lymph Nodes (pN) _X_ pN1b: Metastasis to unilateral, bilateral, or contralateral lateral neck lymph nodes (levels I, II, III, IV, or V) or retropharyngeal lymph nodes Additional Pathologic Findings _X_ Thyroiditis (specify type): Chronic Lymphocytic Thyroiditis _X_ Parathyroid gland(s) present (specify number, location, and findings): Two, site, cannot be determined, central compartment dissection Electronically Signed Elo El M.D. Gross Description A. Received fresh labeled "right lobe of thyroid and isthmus," is a 12 g, 4.7 x 3.3 x 1.8 cm right thyroid lobe with an attached 1.2 x 0.6 x 0.3 cm isthmus. The outer capsule is red-brown and intact. Sectioning reveals a 1.5 x 1.4 x 1.0 cm homogeneous bermudez, solid nodule in the inferior pole of the specimen. The nodule abuts the outer capsule but does not appear to grossly invade through. The remaining thyroid parenchyma is red-brown and beefy. A frozen section is performed on the nodule. The specimen is entirely submitted in 11 cassettes as follows: 1-frozen section residue; [id number] submitted right lobe from superior to inferior (nodule in cassettes 7-10); 11-isthmus. B. Received fresh labeled "left lobe of thyroid," is a 7 g, 4.1 x 2.8 x 1.1 cm left thyroid lobe. The outer capsule is red-brown and intact. Sectioning reveals multiple bermudez nodules, measuring up to 0.9 cm in greatest dimension. The remaining thyroid parenchyma is red-brown and beefy. The specimen is entirely and sequentially submitted from superior to inferior and 7 cassettes. C. Received fresh labeled "central compartment lymph node dissection," is a 2.5 x 2.4 x 1.5 cm portion of bermudez-red soft tissue. Sectioning reveals multiple possible lymph nodes ranging from 0.4-0.8 cm in greatest mentioned. The specimen is entirely submitted in 5 cassettes as follows: 1-3-three whole possible lymph nodes each; 4-one bisected possible lymph node; 5-remaining soft tissue. D. Received in formalin labeled "right jugular chain lymph node," are 2 bermudez red lymph nodes measuring 0.8 x 0.5 x 0.2 cm and 1.7 x 0.5 x 0.2 cm. The specimens are submitted in toto in one cassette. 12/17/201712/17/2017
== END 2017-12-21 12:00 | disposition home or self-care (01) | DRG 404 ==
LOC: JASUSAT 08:48 → JSAMEDAYSX 08:49 → J6S 17:20
PROVIDERS: ADMIT Specialist; ATTEND Specialist
PROC: 0GTG0ZZ Resection of Left Thyroid Gland Lobe, Open Approach (ICD-10-PCS; 2017-12-17)
PROC: 07T10ZZ Resection of Right Neck Lymphatic, Open Approach (ICD-10-PCS; 2017-12-17)
PROC: 0GTH0ZZ Resection of Right Thyroid Gland Lobe, Open Approach (ICD-10-PCS; principal; 2017-12-17 09:30)
DX: C73 Malignant neoplasm of thyroid gland (principal); R55 Syncope and collapse; J06.9 Acute upper respiratory infection, unspecified; R50.82 Postprocedural fever; E83.51 Hypocalcemia; R51 Headache; J34.89 Other specified disorders of nose and nasal sinuses; E87.6 Hypokalemia
CPT/HCPCS: 36415; 71045-TC-FY; 80053; 82310; 82962; 83735; 84100; 84443; 84703; 85025; 87040; 87070; 87086; 87186; 87430; 88307-TC; 88331-TC; 88341-TC; 88342-TC; 93005; 93010; 94010; 94760

== ENCOUNTER 2019-11-21 18:45 | Inpatient (IN) | payer OTHER ==
[2019-11-21] MEDS ORDERED: DINOPROSTONE 10 MG VAGINAL SUPPOSITORY VG ONE (20:00)
--- NOTE | 2019-11-21 20:05 | HP ---
Past Medical History - Primary Care Physician PCP:: Mike Rasmussen E - Admission Chief Complaint: Patient at term admitted for induction. History of Present Illness: Ess. uneventful , followed closely. Mild preclampsia with proteinuria, labile BP and edema. Also, impending macrosomia. Discussed with patient. She's concerned and would like an induction. discussed all pros and cons as well as risk of c/s. GBS neg. 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: No: Alzheimer's, CVA, Dementia, Migraine, Multiple Sclerosis, Peripheral Neuropathy, Parkinson's, Seizure, Syncope, TIA, Vertigo, Other Cardiovascular: No: AFIB, Aneurysm, Aortic Insufficiency, Aortic Stenosis, CAD, CHF, Deep Vein Thrombosis, HTN, Hyperlipdemia, MN, Mitral Insufficiency, Mitral Stenosis, Murmur, Pulmonary Hypertension, Other Pulmonary: No: Asthma, Bronchitis, Cancer, COPD, O2 Dependent, Pneumonia, Previously Intubated, Pulmonary Embolus, Pulmonary Fibrosis, Sleep Apnea, Other Gastrointestinal: No: Ascites, Cancer, Constipation, Crohn's Disease, Diverticulitis, Diverticulosis, Esophageal Varices, Gastritis, GERD, GI Bleed, Hemorrhoids, Hiatal Hernia, Inflamatory Bowel Disease, Irritable Bowel Disease, Pancreatitis, Peptic Ulcer Disease, Ulcerative Colitis, Other Hepatobiliary: No: Cirrhosis, Cholelithiasis, Cholecystitis, Choledocholithiasis , Hepatitis A, Hepatitis B, Hepatitis C, Other Renal/: No: Renal Failure, Renal Inusuff, BPH, Cancer, Hematuria, Hemodialysis , Neurogenic Bladder, Renal Calculi, UTI, Other Reproductive: No: Ectopic , Endometriosis, Fibroids, PID, Polycystic Ovary Syndrome, Postmenopausal, Other ...Para: 0 ...EDC by Rodney: 12/05/19 Heme/Onc: No: Anemia, B12 Deficiency, Bleeding Disorder, Cancer, Current Chemotherapy, Current Radiation Therapy, Hemochromatosis, Hypercoaguable State, Myeloproliferative Synd, Sickle Cell Disease, Sickle Cell Trait, Thrombocytopenia, Other Infectious Disease: Yes: Other (dental abscess). No: AIDS, C-Diff, Herpes Zoster, HIV, MRSA, STD's, Tuberculosis, VREF Psych: No: Addictions, Anxiety, Bipolar, Depression, Panic, Psychosis, Schizophrenia, Other Musculoskeletal: No: Bursitis, Chronic low back pain, Hemiparesis, Hemiplegia, Osteoarthritis, Paraplegia, Other Rheumatology: No: Fibromyalgia, Gout, Lupus, Rheumatoid Arthritis, Sarcoidosis, Vasculitis, Other ENT: No: Allergic Rhinitis, Sinusitis, Other Endocrine: Yes: Other (Rt Thyroid nodule) Dermatology: No: Basal Cell, Cellulitis, Eczema, Melanoma, Psoriasis, Squamous Cell, Other - Past Surgical History Hx Myomectomy: No Hx Transabdominal Cerclage: No Additional Surgical History: Thyroidectomy due to cancer. 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 History of Recent Travel: No Home Medications - Allergies Allergies/Adverse Reactions: Allergies Allergy/AdvReac Type Severity Reaction Status Date / Time No Known Allergies Allergy Verified 11/21/19 19:46 - Home Medications Home Medications: Ambulatory Orders Pnv No.95/Ferrous Fum/Folic AC [ Formula] 1 each PO DAILY 10/10/19 Levothyroxine [Synthroid -] 200 mcg PO DAILY 11/21/19 Review of Systems - Review of Systems Constitutional: reports: No Symptoms Eyes: reports: No Symptoms HENT: reports: No Symptoms Neck: reports: No Symptoms Cardiovascular: reports: No Symptoms Respiratory: reports: No Symptoms Gastrointestinal: reports: No Symptoms Genitourinary: reports: No Symptoms Breasts: reports: No Symptoms Reported Musculoskeletal: reports: No Symptoms Integumentary: reports: No Symptoms Neurological: reports: No Symptoms Endocrine: reports: No Symptoms Hematology/Lymphatic: reports: No Symptoms Psychiatric: reports: No Symptoms Physical Exam - Maternity Constitutional: Yes: Well Nourished, No Distress, Calm Eyes: Yes: WNL, Conjunctiva Clear, EOM Intact HENT: Yes: WNL, Atraumatic, Normocephalic Neck: Yes: WNL, Supple, Trachea Midline Cardiovascular: Yes: WNL, Regular Rate and Rhythm Breast(s): Yes: WNL - Abdominal Exam/OB Fundal Height: 42 Presentation: Vertex Contractions: No Monitor Mode: External Heart Rate Location: [facility] Category: I Accelerations: Uniform - Vaginal Exam/OB Vaginal Bleediing: No Speculum Exam: No Dilatation (cm): 0 Effacement (%): 50 Amniotic Membrane Status: Intact Station: -2 - Physical Exam Musculoskeletal: Yes: WNL Extremities: Yes: WNL Edema: Yes Edema: LUE: Trace, RUE: Trace, LLE: 1+, RLE: 1+ Integumentary: Yes: WNL Deep Tendon Reflex Grade: Normal +2 ...Motor Strength: WNL Psychiatric: Yes: WNL Problem List - Problems (1) Term Code(s): Z34.90 - ENCNTR FOR SUPRVSN OF NORMAL , UNSP, UNSP TRIMESTER (2) Mild preeclampsia Code(s): O14.00 - MILD TO MODERATE PRE-ECLAMPSIA, UNSPECIFIED TRIMESTER (3) LGA (large for gestational age) fetus Code(s): JOM5185 - Assessment/Plan LARGE BABY AT TERM MILD PREECLAMPSIA FOR INDUCTION WITH CEVIDIL AND PITOCIN.
[2019-11-21 20:29] LABS: HYALINE CASTS 8 /lpf (0-8); PH,URINE 6.5 (5.0-8.0); URINE APPEARANCE CLEAR; URINE BILIRUBIN NEGATIVE (NEGATIVE); URINE COLOR YELLOW; URINE GLUCOSE (UA) NEGATIVE (NEGATIVE); URINE KETONE NEGATIVE (NEGATIVE); URINE LEUK ESTERASE 3+ (NEGATIVE); URINE NITRITE NEGATIVE (NEGATIVE); URINE PROTEIN TRACE (NEGATIVE); URINE RBC 2 /hpf (0-4); URINE UROBILINOGEN 0.2 mg/dL (0.2-1.0); URINE WBC 50 /hpf (0-5)
[2019-11-21 20:56] VITALS: BMI 35.4
[2019-11-21 21:35] LABS: BASO % 0.2 % (0-2.0); EOS % 1.2 % (0-4.5); HEMATOCRIT 27.6 % (32.4-45.2); HEMOGLOBIN 9.1 GM/dL (10.7-15.3); LYMPH % 17.1 % (8-40); MCH 26.2 pg (25.7-33.7); MCHC 32.8 g/dl (32.0-36.0); MEAN CELL VOLUME 79.8 fl (80-96); MEAN PLT VOLUME 8.1 fl (7.5-11.1); MONO % 6.6 % (3.8-10.2); NEUT % 74.9 % (42.8-82.8); PLATELET COUNT 277 K/MM3 (134-434); RBC 3.46 M/mm3 (3.60-5.2); RDW 16.3 % (11.6-15.6)
[2019-11-21 21:49] LABS: INR 0.89 (0.83-1.09); PROTHROMBIN TIME (PATIENT) 10.5 SEC (9.7-13.0)
[2019-11-21 21:51] LABS: ACTIVATED PTT 25.3 SECONDS (25.2-36.5)
[2019-11-21 22:09] LABS: BLOOD UREA NITROGEN 11.7 mg/dL (7-18); CREATININE 0.5 mg/dL (0.55-1.3); GAMMA GLUTAMYL TRANSPEPTIDASE 9 U/L (5-85); POTASSIUM 4.1 mmol/L (3.5-5.1); SGOT/AST 21 U/L (15-37); SGPT/ALT 24 U/L (13-61); URIC ACID 3.4 mg/dL (2.6-7.2)
[2019-11-22] MEDS: DEXTROSE 5%-LACTATED RINGERS 1,000 ML IV SCH ×3 (02:30→15:43)
[2019-11-22] MEDS ORDERED: OXYTOCIN 30 UNITS in 0.9% NS 30 UNIT/500 ML INFUS.BAG IVPB ONE (07:56)
[2019-11-22] MEDS ORDERED: OXYTOCIN 30 UNITS in 0.9% NS 30 UNIT/500 ML INFUS.BAG IVPB SCH (09:30)
--- NOTE | 2019-11-22 10:45 | PN ---
Progress Note, Labor Vaginal Exam #1 Labor Exam Date: 11/22/19 Labor Exam Time: 10:35 Dilatation: 1 Effacement (%): 50 Amniotic Membrane Status: Intact Presentation: Vertex/Position (Ctx irregular, mild/moderate. FH reactive, cat 1. AROM - clear.) Station: -2
[2019-11-22] MEDS ORDERED: BUTORPHANOL TARTRATE 1 MG/ML VIAL IVPB ONE (10:47)
[2019-11-22] MEDS ORDERED: PROMETHAZINE HCL 25 MG/1 ML VIAL IVPB ONE (10:48)
[2019-11-22] MEDS ORDERED: ELECTROLYTE-148 SOLN 1,000 ML IV SCH (15:00)
--- NOTE | 2019-11-22 15:56 | PN ---
Progress Note, Labor Vaginal Exam #2 Labor Exam Date: 11/22/19 Labor Exam Time: 15:45 Dilatation: 2-3 Effacement (%): 50 Amniotic Membrane Status: Leaking Presentation: Vertex/Position Station: -2
[2019-11-22] MEDS ORDERED: BUTORPHANOL TARTRATE 1 MG/ML VIAL ONE ×2 (16:17)
[2019-11-22] MEDS ORDERED: PROMETHAZINE HCL 25 MG/1 ML VIAL ONE (16:17)
[2019-11-22] MEDS ORDERED: CITRIC ACID/SODIUM CITRATE 30 ML UNIT-DOSE CUP PO ONE (20:53)
[2019-11-22] MEDS ORDERED: ceFAZolin SODIUM 1 GM VIAL ONE (21:00)
[2019-11-22] MEDS ORDERED: morphine SULFATE/PF 0.5 MG/ML (2cc Syringe - QUVA) ONE (21:00)
[2019-11-22] MEDS ORDERED: PHENYLEPHRINE HCL 10 MG/1 ML SINGLE DOSE VIAL ONE (21:00)
[2019-11-22] MEDS ORDERED: OXYTOCIN 20 UNITS in 0.9% NS 20 UNIT/1,000 ML INFUS.BAG IV ONE ×2 (21:14→22:19)
[2019-11-22] MEDS ORDERED: ONDANSETRON 4 MG/2 ML VIAL IVPUSH PRN (21:16)
[2019-11-22] MEDS ORDERED: IBUPROFEN 600 MG TABLET (FP) PO PRN (21:16)
--- NOTE | 2019-11-22 21:29 | PN ---
Progress Note, Labor Vaginal Exam #3 Labor Exam Date: 11/22/19 Labor Exam Time: 20:30 Dilatation: 3 Effacement (%): 70 Amniotic Membrane Status: Ruptured Presentation: Vertex/Position Station: -1 Remarks: Patient is in great deal of pain. Contractions strong, regular. Patient requests pain meds but declines epidural. No progress in spite of several hours of good labor. Reviewed options. Decision to deliver via c/section. All risks reviewed. Patients understands and consents.
[2019-11-22] MEDS ORDERED: MIDAZOLAM HCL 2 MG/2 ML SINGLE DOSE VIAL ONE (21:47)
[2019-11-22] MEDS ORDERED: METHYLERGONOVINE MALEATE 0.2 MG/1 ML AMP IM PRN (22:45)
[2019-11-22] MEDS ORDERED: KETOROLAC TROMETHAMINE 30 MG/1 ML VIAL IVPUSH PRN (22:51)
--- NOTE | 2019-11-22 23:00 | PN ---
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
[2019-11-22] MEDS: ACETAMINOPHEN 1000 MG/100 ML VIAL (NON FORMULARY) IVPB PRN (23:59)
[2019-11-23] MEDS ORDERED: ceFAZolin 2 GRAM PREMIX BAG IVPB SCH (02:00)
[2019-11-23] MEDS: CEFAZOLIN 2 GM/D5W 2 GM/50 ML ML IVPB SCH ×3 (02:54→17:22)
--- NOTE | 2019-11-23 07:18 | OP ---
DATE OF OPERATION: DATE OF DICTATION: 11/22/2019 PREOPERATIVE DIAGNOSES: 1. Intrauterine at term, mild preeclampsia. 2. Arrest of labor. POSTOPERATIVE DIAGNOSES: 1. Intrauterine at term, mild preeclampsia. 2. Arrest of labor. PROCEDURE PERFORMED: Primary low-segment transverse section. ANESTHESIA: Epidural. ANESTHESIOLOGIST: Tre Tena MD SURGEON: Mike Rasmussen MD SUPERVISOR LACE TEARING: Kasey Almeida MD PROCEDURE AND FINDINGS: Under excellent spinal block, the patient was placed in the dorsal supine position with a left lateral tilt. Prep and drape were carried out. Abdomen was entered through a Pfannenstiel incision, which was carried through the subcutaneous tissue and the rectus muscles fascia transversely. The rectus muscles were dissected off the fascia and divided in the midline. The peritoneum was entered sharply and opened vertically. A term uterus was noted. Adnexa were within normal limits. The lower uterine segment was distended, with an acynclitic head. It was very thinned out. The head was completely unengaged. Bladder flap was opened sharply and peeled off the lower uterine segment. Hysterotomy was done transversely and clear amniotic fluid was noted. The incision was extended using bandage scissors. A male infant was then delivered, with the cord being very tight around the neck x2. The baby cried and breathed spontaneously. The cord was divided, and the baby was handed over to the floor helper. She was given Apgars of 9 and 9. The baby's weight was 5 pounds 13 ounces. The placenta was removed from the uterus, and the uterine cavity was cleaned. The os was dilated. The hysterotomy was closed with continuous running interlocking Biosyn 0 suture. Two additional ngnlvk-yr-yvrin sutures were required to control small bleeding points. The pelvis was lavaged. Hemostasis was attended to meticulously. A small piece of Surgicel was placed under the bladder. Count was reported as correct. The abdomen was closed in layers, with peritoneum closed with Biosyn 2-0, fascia with Vicryl 1 running sutures, subcutaneous tissue with interrupted Biosyn 2-0 sutures, and skin was approximated with subcuticular Biosyn 3-0 sutures and Steri-Strips. Blood loss was 600 mL. The patient withstood the procedure very well and was transferred to the recovery room alert and awake. MIKE RASMUSSEN MD [id number]
[2019-11-23] MEDS: ACETAMINOPHEN 1000 MG/100 ML VIAL (NON FORMULARY) IVPB PRN (07:46)
--- NOTE | 2019-11-23 08:12 | PN ---
Progress Note (short form) - Note Progress Note: PP#1 feels well. Zhong still in. Minimal pain. PE: OK. Abd. soft. Incision clean and dry. No cva, extrem T. Breasts soft. I/P: OOB. D/c Zhong now. BRANDON. All discussed w pt. Wants to nurse exclusively. Requests circumcision. Problem List - Problems (1) Term Code(s): Z34.90 - ENCNTR FOR SUPRVSN OF NORMAL , UNSP, UNSP TRIMESTER (2) Mild preeclampsia Code(s): O14.00 - MILD TO MODERATE PRE-ECLAMPSIA, UNSPECIFIED TRIMESTER (3) LGA (large for gestational age) fetus Code(s): JON4339 -
--- NOTE | 2019-11-23 08:14 | PN ---
Progress Note (short form) - Note Progress Note: Post op day#1.S/P C Section under spinal anesthesia with duramorph uneventful.Patient stable and c/o some pain for which she is on medication.No any anesthesia related problem.Patient DC from the anesthesia care.
[2019-11-23 10:49] LABS: BASO % 0.2 % (0-2.0); EOS % 0.2 % (0-4.5); HEMATOCRIT 25.8 % (32.4-45.2); HEMOGLOBIN 8.3 GM/dL (10.7-15.3); MCH 25.8 pg (25.7-33.7); MEAN CELL VOLUME 80.6 fl (80-96); MEAN PLT VOLUME 8.3 fl (7.5-11.1); MONO % 7.5 % (3.8-10.2); NEUT % 79.1 % (42.8-82.8); PLATELET COUNT 258 K/MM3 (134-434); RDW 16.3 % (11.6-15.6); WHITE BLOOD COUNT 14.7 K/mm3 (4.0-10.0)
[2019-11-23] MEDS: SIMETHICONE 80 MG TAB.CHEW (FP) PO PRN ×3 (14:04→22:41)
[2019-11-23] MEDS: IBUPROFEN 600 MG TABLET (FP) PO PRN ×3 (14:05→22:43)
[2019-11-23] MEDS: ACETAMINOPHEN 325 MG TABLET (FP) PO PRN ×3 (14:05→22:42)
--- NOTE | 2019-11-23 19:05 | PN ---
Progress Note (short form) - Note Progress Note: VSS. Feels well. OOB. Flatus pos. Happy. Pain free. Abdomen sl. distended. BS pos. Incision clean and dry. No cva, extrem T. I/P: Doing very well. Circ done. Meds called in. Instructions given. Anticipating discharge in 24 - 48 hours. Problem List - Problems (1) Term Code(s): Z34.90 - ENCNTR FOR SUPRVSN OF NORMAL , UNSP, UNSP TRIMESTER (2) Mild preeclampsia Code(s): O14.00 - MILD TO MODERATE PRE-ECLAMPSIA, UNSPECIFIED TRIMESTER (3) LGA (large for gestational age) fetus Code(s): [id number] -
[2019-11-23] MEDS ORDERED: BISACODYL 10 MG SUPP.RECT RC PRN (22:45)
[2019-11-23] MEDS ORDERED: ACETAMINOPHEN 500 MG TABLET (FP) PO PRN (23:00)
[2019-11-24] MEDS: IBUPROFEN 600 MG TABLET (FP) PO PRN ×4 (08:34→21:39)
[2019-11-24] MEDS: ACETAMINOPHEN 325 MG TABLET (FP) PO PRN ×2 (08:35→12:19)
[2019-11-24] MEDS: SIMETHICONE 80 MG TAB.CHEW (FP) PO PRN ×3 (12:19→21:39)
[2019-11-24] MEDS ORDERED: ACETAMINOPHEN 325 MG TABLET (FP) PO PRN (13:43)
[2019-11-24] MEDS: oxyCODONE HCL 5 MG TABLET PO PRN ×3 (13:53→21:39)
--- NOTE | 2019-11-24 18:56 | PN ---
Post Progress Note Post Day: 2 Type of Delivery: Primary C/S Vital Signs: Vital Signs Temperature 97.8 F 11/24/19 09:12 Pulse Rate 82 11/24/19 09:12 Respiratory Rate 20 11/24/19 09:12 Blood Pressure 108/61 11/24/19 09:12 O2 Sat by Pulse Oximetry (%) 99 11/22/19 22:30 Breast Exam: Yes: Soft Uterus: Yes: Fundus Firm Incision: Yes: Dressing dry and intact Abdomen/GI: Yes: Abdomen soft, Passing flatus, Tolerating PO Lochia: Yes: Serosa Lochia, amount: Small Extremities: Yes: Calves non-tender Perineum: Yes: Intact Activity: Ambulating (possible dc pt home tomorrow or wednesday ) - Labs Labs: CBC WBC 14.7 K/mm3 (4.0-10.0) H 11/23/19 10:05 RBC 3.20 M/mm3 (3.60-5.2) L 11/23/19 10:05 Hgb 8.3 GM/dL (10.7-15.3) L 11/23/19 10:05 Hct 25.8 % (32.4-45.2) L 11/23/19 10:05 MCV 80.6 fl (80-96) 11/23/19 10:05 MCH 25.8 pg (25.7-33.7) 11/23/19 10:05 MCHC 32.0 g/dl (32.0-36.0) 11/23/19 10:05 RDW 16.3 % (11.6-15.6) H 11/23/19 10:05 Plt Count 258 K/MM3 (134-434) 11/23/19 10:05 MPV 8.3 fl (7.5-11.1) 11/23/19 10:05 Absolute Neuts (auto) 11.6 K/mm3 (1.5-8.0) H 11/23/19 10:05 Neutrophils % 79.1 % (42.8-82.8) 11/23/19 10:05 Lymphocytes % 13.0 % (8-40) D 11/23/19 10:05 Monocytes % 7.5 % (3.8-10.2) 11/23/19 10:05 Eosinophils % 0.2 % (0-4.5) D 11/23/19 10:05 Basophils % 0.2 % (0-2.0) 11/23/19 10:05 Nucleated RBC % 0 % (0-0) 11/23/19 10:05 Haptoglobin 90 mg/dL (33-278) 11/21/19 20:45
[2019-11-25] MEDS: SIMETHICONE 80 MG TAB.CHEW (FP) PO PRN ×4 (08:34→21:05)
[2019-11-25] MEDS: oxyCODONE HCL 5 MG TABLET PO PRN ×4 (08:34→21:05)
[2019-11-25] MEDS: IBUPROFEN 600 MG TABLET (FP) PO PRN ×4 (08:36→21:06)
[2019-11-25 08:53] LABS: BASO % 0.7 % (0-2.0); EOS % 4.5 % (0-4.5); HEMATOCRIT 25.8 % (32.4-45.2); HEMOGLOBIN 8.4 GM/dL (10.7-15.3); LYMPH % 21.3 % (8-40); MCH 26.2 pg (25.7-33.7); MCHC 32.5 g/dl (32.0-36.0); MEAN CELL VOLUME 80.7 fl (80-96); MEAN PLT VOLUME 7.9 fl (7.5-11.1); MONO % 6.1 % (3.8-10.2); NEUT % 67.4 % (42.8-82.8); PLATELET COUNT 300 K/MM3 (134-434); RBC 3.19 M/mm3 (3.60-5.2); RDW 16.8 % (11.6-15.6); WHITE BLOOD COUNT 10.2 K/mm3 (4.0-10.0)
--- NOTE | 2019-11-25 18:22 | PN ---
Post Progress Note Post Day: 3 Type of Delivery: Primary C/S Vital Signs: Vital Signs Temperature 97.6 F 11/25/19 10:00 Pulse Rate 75 11/25/19 10:00 Respiratory Rate 18 11/25/19 10:00 Blood Pressure 110/68 11/25/19 10:00 O2 Sat by Pulse Oximetry (%) 99 11/22/19 22:30 Breast Exam: Yes: Soft Uterus: Yes: Fundus Firm, Fundus below umbilicus, Non-tender Incision: Yes: Dressing dry and intact, Sutures intact Abdomen/GI: Yes: Abdomen soft, Passing flatus, Tolerating PO Lochia: Yes: Serosa Lochia, amount: Small Extremities: Yes: Calves non-tender Perineum: Yes: Intact Activity: Ambulating (dc pt home tomorrow ) - Labs Labs: CBC WBC 10.2 K/mm3 (4.0-10.0) H 11/25/19 08:20 RBC 3.19 M/mm3 (3.60-5.2) L 11/25/19 08:20 Hgb 8.4 GM/dL (10.7-15.3) L 11/25/19 08:20 Hct 25.8 % (32.4-45.2) L 11/25/19 08:20 MCV 80.7 fl (80-96) 11/25/19 08:20 MCH 26.2 pg (25.7-33.7) 11/25/19 08:20 MCHC 32.5 g/dl (32.0-36.0) 11/25/19 08:20 RDW 16.8 % (11.6-15.6) H 11/25/19 08:20 Plt Count 300 K/MM3 (134-434) 11/25/19 08:20 MPV 7.9 fl (7.5-11.1) 11/25/19 08:20 Absolute Neuts (auto) 6.9 K/mm3 (1.5-8.0) 11/25/19 08:20 Neutrophils % 67.4 % (42.8-82.8) 11/25/19 08:20 Lymphocytes % 21.3 % (8-40) D 11/25/19 08:20 Monocytes % 6.1 % (3.8-10.2) 11/25/19 08:20 Eosinophils % 4.5 % (0-4.5) D 11/25/19 08:20 Basophils % 0.7 % (0-2.0) D 11/25/19 08:20 Nucleated RBC % 0 % (0-0) 11/25/19 08:20 Haptoglobin 90 mg/dL (33-278) 11/21/19 20:45
--- NOTE | 2019-11-25 18:25 | DS ---
Physical Exam-TAWER Vital Signs: Vital Signs Temperature 97.6 F 11/25/19 10:00 Pulse Rate 75 11/25/19 10:00 Respiratory Rate 18 11/25/19 10:00 Blood Pressure 110/68 11/25/19 10:00 O2 Sat by Pulse Oximetry (%) 99 11/22/19 22:30 Constitutional: Yes: Well Nourished, No Distress, Calm Eyes: Yes: WNL, Conjunctiva Clear, EOM Intact HENT: Yes: WNL, Atraumatic, Normocephalic Neck: Yes: WNL, Supple, Trachea Midline Cardiovascular: Yes: WNL, Regular Rate and Rhythm Respiratory: Yes: WNL, Regular, CTA Bilaterally Gastrointestinal: Yes: WNL, Normal Bowel Sounds, Soft ...Rectal Exam: Yes: WNL Renal/: Yes: WNL Pelvis: Yes: WNL External Genitalia: Yes: Normal Internal Exam Deferred: No Vaginal Exam: Yes: Normal Cervix: Yes: Normal Uterus: Yes: Normal Adnexa: Normal: Bilateral ....Post : Yes: Uterus firm, Uterus non-tender Breast(s): Yes: WNL Musculoskeletal: Yes: WNL Extremities: Yes: WNL Edema: Yes Edema: LUE: 1+, RUE: 1+, LLE: 1+, RLE: 1+ Integumentary: Yes: WNL Wound/Incision: Yes: Clean/Dry, Well Approximated Neurological: Yes: WNL, Alert, Oriented ...Motor Strength: WNL Psychiatric: Yes: WNL, Alert, Oriented Labs: CBC, BMP 11/25/19 08:20 11/21/19 20:45 Delivery - Delivery Section: Primary Type of Anesthesia: Spinal Episiotomy/Laceration: None EBL (cc): 600 Delivery, Single - Stages of Labor Date 1st Stage Initiatied: 11/22/19 Time 1st Stage Initiated: 08:30 Date of Delivery: 11/22/19 Time of Delivery: 21:31 Time Placenta Delivered: 21:33 - 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 Silverware 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/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 Set Up Operator Present: Yes Name: Katja Canseco Gender: Male Weight: 2.637 kg Position: Left, OT Total Hours ROM (Hrs/Mins): 2m - 1 Minute Total Score: 9 5 Minutes Total Score: 9 - Feeding Plan Initial Plan: Exclusive throughout hospitalization Benefits of Exclusively reinforced: Yes Discharge Summary Problems reviewed: Yes Reason For Visit: ADMIT LABOR Current Active Problems LGA (large for gestational age) fetus (Acute) Mild preeclampsia (Acute) Term (Acute) Procedures: Principal: primary lt c s Other Procedures: none Hospital Course: uneventful Health Concerns: none Plan of Treatment: oob as much as possible Goals: return to work in 6 weeks Condition: Good - Instructions Diet, Activity, Other Instructions: Physical activity Resume your normal everyday activity as tolerated no heavy lifting or exercise until seen by your surgeon. You may walk unlimited eleanor of and climb stairs. You may resume driving the car when you feel safe and comfortable behind the wheel. No sexual activity as instructed. Wound care If you have a bandage, leave it on, and keep dry for 48-72 hours. After that time discard the outer bandage. If they are tapes on the skin under the out of bandage leave them in place. They will peel off in the next 7 to 10 days. Do Not Peel them off. You may shower the day after surgery. If there are tapes present on the skin, you may shower over them. Diet There are no dietary restrictions. Eat healthy, high-fiber foods. Drink 6 to 8 glasses of liquid each day. This will assist in keeping your bowels are regular. Pain management You may take Tylenol or acetaminophen or Ibuprofen (for example, Motrin, Advil etc.) from my pain prescription medication is ordered should be taken as prescribed for moderate to severe pain. Call MD for any of the following: call dr troncoso for 2 weeks appointment Severe pain not relieved by medication Fever of 101 or higher Excessive bleeding or drainage on dressing Inability to urinate Disposition: HOME - Home Medications Comprehensive Discharge Medication List: Ambulatory Orders Pnv No.95/Ferrous Fum/Folic AC [ Formula] 1 each PO DAILY 10/10/19 Levothyroxine [Synthroid -] 200 mcg PO DAILY 11/21/19
[2019-11-26] MEDS: SIMETHICONE 80 MG TAB.CHEW (FP) PO PRN ×2 (03:49→08:44)
[2019-11-26] MEDS: oxyCODONE HCL 5 MG TABLET PO PRN ×2 (03:49→08:43)
[2019-11-26] MEDS: IBUPROFEN 600 MG TABLET (FP) PO PRN ×2 (03:50→08:42)
[2019-11-26 10:07] VITALS: BP 115/63; PULSE 69; TEMP 97.3
--- NOTE | 2019-11-29 19:23 | PATH ---
Surgical Pathology Report Patient Name: GENESIS PAREDES Med. Rec. #: [id number] /Age/Gender: 1995 (Age: 24) / F Account: [id number] Location: [facility] OBS/QA ANALYST Taken: 11/22/2019 Received: 11/23/2019 Reported: 11/29/2019 Physicians: Mike Rasmussen MD Specimen(s) Received PLACENTA Clinical History Cervadil/Pitocin induction, failure to progress Final Diagnosis PLACENTA: THIRD TRIMESTER PLACENTA. TRIVASCULAR CORD. MEMBRANES WITH NO DIAGNOSTIC ABNORMALITIES. Electronically Signed Nasima Jane M.D. Gross Description The specimen is received fresh labeled placenta and is a 375 gram, 16.5 x 12.0 x 2.4 cm. placenta with attached membranes and umbilical cord. The attached membranes are bermudez, thick, cloudy and insert marginally. The umbilical cord measures are 25 cm. in length and averages 1.1 cm. in diameter. The cord inserts eccentrically, 3 cm. to the nearest margin. No true knots or strictures are identified. Cut surface of the umbilical cord reveals 3 vessels. The surface is garcia-blue with minimal fibrin deposition and appropriate caliber vessels. The maternal surface is red-brown with focal defects. Sectioning reveals red-brown, spongy parenchyma. No lesions are identified. Junior Automation Engineer sections are submitted in three cassettes as follows: 1- membrane rolls and umbilical cord; 2-3- full thickness sections of placenta. /11/27/2019 saudi11/27/2019
== END 2019-11-26 12:10 | disposition home or self-care (01) | DRG 540 ==
LOC: JLDR 18:45 → J3W 11-22 23:47
PROVIDERS: ADMIT Specialist; ATTEND Specialist
PROC: 10D00Z1 Extraction of Products of Conception, Low, Open Approach (ICD-10-PCS; principal; 2019-11-22)
DX: O62.1 Secondary uterine inertia (principal); O14.03 Mild to moderate pre-eclampsia, third trimester; Z3A.38 38 weeks gestation of pregnancy; Z37.0 Single live birth
CPT/HCPCS: 36415; 80048; 81003; 82977; 83010; 84450; 84460; 84550; 85025; 85610; 85730; 86593; 86850; 86900; 86901; 88307-TC; J0131